=== PATIENT | female | born 1980 ===

== ENCOUNTER 2020-06-05 07:21 | Outpatient (REF) | payer BC, SELFPAY ==
[2020-06-05 08:20] LABS: MANUAL DIFF FLAG NO
[2020-06-05 08:36] LABS: Basophils Absolute Auto 0.1 X10*3/uL (0.0-0.2); Basophils Percent Auto 0.7 % (0-2); Eosinophils Absolute Auto 0.3 X10*3/uL (0.0-0.4); Hematocrit 38.4 % (37-47); Hemoglobin 12.9 g/dl (12.0-16.0); Imm Gran Abs Auto 0.02 X10*3/uL (0.00-0.03); Imm Gran Pct Auto 0.2 % (0.0-0.4); Lymphocytes Percent Auto 32.1 % (20-40); Mean Corpuscular HGB Conc 33.6 g/dl (31.0-35.0); Mean Corpuscular Hemoglobin 28.9 pg (27.0-33.0); Mean Corpuscular Volume 86.1 fL (80-98); Mean Platelet Volume 9.9 fL (9.4-12.3); Monocytes Absolute Auto 0.6 X10*3/uL (0.1-1.2); Monocytes Percent Auto 6.8 % (2-11); Neutrophils Absolute Auto 5.4 X10*3/uL (2.0-8.3); Neutrophils Percent Auto 57.2 % (45-73); Platelet Count 371 X10*3/uL (160-400); Red Blood Count 4.46 X10*6/uL (4.20-5.50); Red Cell Distribution Width 13.3 % (11.0-16.0); White Blood Count 9.4 X10*3/uL (4.8-10.8)
[2020-06-05 08:55] LABS: Alanine Aminotransferase 15 U/L (0-31); Albumin Level 4.2 g/dL (3.5-5.0); Alkaline Phosphatase 64 U/L (39-117); Anion Gap 14 (12-20); Aspartate Amino Transferase 13 U/L (5-31); Bilirubin Total 0.5 mg/dL (0.0-1.0); Blood Urea Nitrogen 15 mg/dL (9-16); Calcium 9.7 mg/dL (8.4-10.2); Carbon Dioxide 25 mmol/L (22-29); Chloride 103 mmol/L (96-108); Cholesterol 192 mg/dL; Estimated Glomerular Filt Rate > 60; Glucose Random 92 mg/dL (60-115); HDL Cholesterol 40 mg/dL; LDL Cholesterol Calculated 128 mg/dl; Sodium 138 mmol/L (135-145); Total Protein 7.3 g/dL (6.5-8.0); Triglycerides 124 mg/dL
[2020-06-05 09:18] LABS: Free T4 (Free Thyroxine) 0.85 ng/dL (0.71-1.85); Thyroid Stimulating Hormone 2.54 uIU/mL (0.32-4.0); Vitamin D 25-OH Total 21.6 ng/mL (>30)
[2020-06-07 05:08] LABS: Folate 10.7 ng/mL (> or = 4.0); Vitamin B12 309 pg/mL (200-900)
== END 2020-06-05 07:22 | disposition home or self-care (01) ==
LOC: HO.LAB 07:21
PROVIDERS: Visit Provider Internal Medicine
DX: I10 Essential (primary) hypertension (principal); E78.00 Pure hypercholesterolemia, unspecified
CPT/HCPCS: 36415; 80053; 80061; 82306; 82607; 82746; 84439; 84443; 85025

== ENCOUNTER 2021-03-15 15:18 | Outpatient (REF) | payer BC, MEDICAID, SELFPAY ==
--- NOTE | ~2021-03-15 | MM_ITS ---
EXAMINATION: MM SCREENING DIGITAL BREAST TOMOSYNTHESIS, BILATERAL CLINICAL INFORMATION: Screening. Asymptomatic. The lifetime risk of breast cancer based on the Tyrer-Cuzick Model is 19%. COMPARISON: Mammography: 10/03/2019, 09/24/2019 (baseline); left breast ultrasound 10/03/2019. TECHNIQUE: Digital breast tomosynthesis is performed in both the craniocaudal and mediolateral oblique views along with computer-aided detection (CAD). Synthesized 2D images are generated from the tomosynthesis. FINDINGS: There are scattered areas of fibroglandular density (ACR BI-RADS breast composition Category b). There are no significant masses, abnormal calcifications, or other abnormalities. Nodularity anterior 12:00 left breast consistent with cysts is stable. No developing density or significant changes from prior exams. MM/MM tomosynthesis screening BI IMPRESSION: No mammographic evidence of malignancy. ASSESSMENT: BI-RADS 2: Benign RECOMMENDATION: Routine annual mammography screening. This patient's information was entered into a reminder system with a target due date for their next mammogram.
== END 2021-03-15 15:19 | disposition home or self-care (01) ==
LOC: HO.MAMMO 15:18
PROVIDERS: Visit Provider Internal Medicine
DX: Z12.31 Encounter for screening mammogram for malignant neoplasm of breast (principal)
CPT/HCPCS: 77063; 77067

== ENCOUNTER 2021-03-22 10:06 | Outpatient (REF) | payer BC, MEDICAID, SELFPAY ==
[2021-03-22 14:45] LABS: CT PCR NOT DETECTED (Not Detect.); NG PCR NOT DETECTED (Not Detect.)
[2021-03-23 09:36] LABS: BV Int Neg Control Negative (Negative); BV Int Pos Control Positive (Positive)
== END 2021-03-22 10:07 | disposition home or self-care (01) ==
LOC: HO.LAB 10:06
PROVIDERS: PCP Internal Medicine; Visit Provider Advanced Practice Midwife
DX: Z01.411 Encounter for gynecological examination (general) (routine) with abnormal findings (principal); R10.2 Pelvic and perineal pain; N94.6 Dysmenorrhea, unspecified; N92.0 Excessive and frequent menstruation with regular cycle; Z20.2 Contact with and (suspected) exposure to infections with a predominantly sexual mode of transmission
CPT/HCPCS: 81003; 81025; 87480; 87491; 87510; 87591; 87660

== ENCOUNTER 2021-04-13 13:17 | Outpatient (REF) | payer BC, MEDICAID, SELFPAY ==
--- NOTE | ~2021-04-13 | US_ITS ---
EXAMINATION: US PELVIS CLINICAL INFORMATION: Extensive and frequent menstruation COMPARISON: Previous pelvic ultrasound March 2015 TECHNIQUE: Ultrasound of the pelvis is performed using both transabdominal and transvaginal transducers along with Doppler. Transvaginal imaging is performed due to inadequate visualization transabdominally. FINDINGS: The uterus is anteverted and measures 9.6 x 5.1 x 6.1 cm in dimension. There were several small cysts seen adjacent to the endometrium, largest measuring 4 mm. There is heterogeneous hyperechoic tissue with echotexture similar to endometrial tissue seen adjacent to the endometrium in the myometrium. Appearance is questionable for adenomyosis. Endometrial thickness is normal and measures 0.9 cm. IUD on 2014 exam no longer seen. There are nabothian cysts in the cervix. The right ovary is not seen. The left ovary measures 2.3 x 2.1 x 2.3 cm. There is a 1.3 x 1.3 x 1.4 cm complex left ovarian cyst with thick echogenic wall and vascularity. This probably represents a physiologic corpus. There is no fluid in the pelvis. US/US pelvic and transvaginal IMPRESSION: Question adenomyosis of the uterus. Normal thickness endometrium. IUD no longer seen. Right ovary not seen. Small complex left ovarian cyst probably representing a physiologic cyst.
== END 2021-04-13 13:18 | disposition home or self-care (01) ==
LOC: HO.US 13:17
PROVIDERS: PCP Internal Medicine; Visit Provider Advanced Practice Midwife
DX: N92.0 Excessive and frequent menstruation with regular cycle (principal)
CPT/HCPCS: 76830; 76856

== ENCOUNTER 2021-04-27 13:10 | Outpatient (REF) | payer BC, MEDICAID, SELFPAY | END 2021-04-27 13:11 | disposition home or self-care (01) | LOC: HO.LAB 13:10 | PROVIDERS: PCP Internal Medicine; Visit Provider Advanced Practice Midwife | DX: N93.9 Abnormal uterine and vaginal bleeding, unspecified (principal); N92.0 Excessive and frequent menstruation with regular cycle; N83.299 Other ovarian cyst, unspecified side; Z71.2 Person consulting for explanation of examination or test findings | CPT/HCPCS: 58100; 88305 ==

== ENCOUNTER → 2021-06-08 09:06 | Outpatient (BNVA) | payer BC, MEDICAID, SELFPAY | PROVIDERS: PCP Internal Medicine; Visit Provider Advanced Practice Midwife | DX: Z30.430 Encounter for insertion of intrauterine contraceptive device (principal) | CPT/HCPCS: 58300; 81025; J7298 ==

== ENCOUNTER 2021-06-23 13:18 | Outpatient (REF) | payer BC, MEDICAID, SELFPAY ==
--- NOTE | ~2021-06-23 | US_ITS ---
EXAMINATION: US PELVIS CLINICAL INFORMATION: Ovarian cyst. COMPARISON: Previous pelvic ultrasound April 2021. TECHNIQUE: Ultrasound of the pelvis is performed using both transabdominal and transvaginal transducers along with Doppler. Transvaginal imaging is performed due to inadequate visualization transabdominally. FINDINGS: The uterus is anteverted and measures 8.8 x 4.5 x 5.3 cm in dimension. There is a new IUD in the uterus in satisfactory position. The endometrium does not appear thickened measuring 0.5 cm. Uterine echotexture is heterogeneous. There are multiple hyperechoic small areas in the uterus. The largest measures 7 x 6 x 7 mm in the upper right uterine body. There are numerous small cystic areas in the uterus. Appearance is questionable for adenomyosis. There are nabothian cysts in the cervix. The right ovary measures 2.5 x 1 x 1 cm and is normal-appearing. The left ovary measures 3.2 x 1.8 x 1.7 cm. There is a new slightly complex 2.2 x 1.4 x 1.9 cm left ovarian cyst with slightly thickened irregular wall probably representing a physiologic corpus luteum. There is no fluid in the pelvis. US/US pelvic and transvaginal IMPRESSION: New IUD in the uterus in satisfactory position. Heterogeneous uterine echotexture questionable for adenomyosis. New slightly complex 2.2 x 1.4 x 1.9 cm left ovarian cyst with slightly thickened irregular wall probably representing a physiologic corpus luteum.
== END 2021-06-23 13:19 | disposition home or self-care (01) ==
LOC: HO.US 13:18
PROVIDERS: Visit Provider Advanced Practice Midwife
DX: N83.292 Other ovarian cyst, left side (principal)
CPT/HCPCS: 76830; 76856

== ENCOUNTER → 2021-06-30 11:19 | Outpatient (BNVA) | payer BC, MEDICAID, SELFPAY | PROVIDERS: PCP Internal Medicine; Visit Provider Advanced Practice Midwife | DX: Z13.89 Encounter for screening for other disorder (principal) ==

== ENCOUNTER 2021-07-09 07:42 | Outpatient (REF) | payer BC, MEDICAID, SELFPAY ==
[2021-07-14 12:41] LABS: CA 125 New Method 21 U/mL (<35); CA-125 21 U/mL (<35)
== END 2021-07-09 07:43 | disposition home or self-care (01) ==
LOC: HO.LAB 07:42
PROVIDERS: PCP Internal Medicine; Visit Provider Advanced Practice Midwife
DX: N83.299 Other ovarian cyst, unspecified side (principal)
CPT/HCPCS: 36415; 86304

== ENCOUNTER → 2021-07-11 08:43 | Outpatient (BNVA) | payer BC, MEDICAID, SELFPAY | PROVIDERS: PCP Internal Medicine; Visit Provider Advanced Practice Midwife | DX: Z13.89 Encounter for screening for other disorder (principal) ==

== ENCOUNTER 2021-10-31 15:32 | Outpatient (REF) | payer BC, MEDICAID, SELFPAY ==
--- NOTE | ~2021-10-31 | US_ITS ---
EXAMINATION: US PELVIS CLINICAL INFORMATION: Other ovarian cyst COMPARISON: Ultrasound pelvis from 06/23/2021 TECHNIQUE: Ultrasound of the pelvis is performed using both transabdominal and transvaginal transducers along with Doppler. Transvaginal imaging is performed due to inadequate visualization transabdominally. FINDINGS: Uterus: The uterus is anteverted and measures 9.0 x 4.0 x 6.1 cm. Linear echogenic focus identified representing an IUD, and appropriate position. Redemonstration of myometrial cysts. The uterus is smooth in contour and has normal myometrial echogenicity. No visible fibroid. Adnexa: Both ovaries are visualized. There is normal color flow to the adnexa. There is no ovarian torsion. There is no pelvic ascites or fluid collection. Right ovary measures 4.2 x 2.0 x 2.3 cm, volume 12.8 mL. Simple appearing cyst in the right ovary measuring 3.8 x 1.7 x 2.3 cm. Left ovary measures 2.8 x 1.2 x 1.0 cm, volume 1.9 mL. US/US pelvic and transvaginal IMPRESSION: 1. IUD in appropriate position. 2. Redemonstration of myometrial cysts. 3. Simple appearing cyst in the right ovary measuring up to 3.8 cm.
== END 2021-10-31 15:33 | disposition home or self-care (01) ==
LOC: HO.US 15:32
PROVIDERS: Visit Provider Advanced Practice Midwife
DX: N83.299 Other ovarian cyst, unspecified side (principal)
CPT/HCPCS: 76830; 76856

== ENCOUNTER 2021-12-13 15:41 | Emergency (ER) | payer BC, MEDICAID, SELFPAY ==
--- NOTE | ~2021-12-13 | XR_ITS ---
EXAMINATION: XR CHEST CLINICAL INFORMATION: Chest pain COMPARISON: Previous chest x-ray March 2014 TECHNIQUE: Frontal view of the chest was obtained. FINDINGS: The cardiac and mediastinal contours are normal. The lungs are clear. There is no pleural effusion or pneumothorax. There is mild curvature of the lower thoracic spine to the right. Bony structures are otherwise unremarkable. XR/XR chest 1V IMPRESSION: No evidence for acute disease in the chest.
[2021-12-13 15:44] VITALS: BP 187/97; PULSE 85; RESP 18; O2SAT 100; BMI 35.6
--- NOTE | 2021-12-13 15:48 | ECG_ITS ---
Test Reason : chest pain Blood Pressure : / mmHG Vent. Rate : 075 BPM Atrial Rate : 075 BPM P-R Int : 168 ms QRS Dur : 090 ms QT Int : 420 ms P-R-T Axes : 028 017 041 degrees QTc Int : 469 ms Normal sinus rhythm Normal ECG When compared with ECG of 17-NOV-2013 17:25, No significant change was found Referred By: Generic ED Physician Electronically Signed By:ORLANDO MALAVE
[2021-12-13 15:58] LABS: MANUAL DIFF FLAG NO
[2021-12-13 16:01] LABS: Basophils Percent Auto 0.3 % (0-2); Eosinophils Absolute Auto 0.2 X10*3/uL (0.0-0.4); Eosinophils Percent Auto 1.6 % (0-4); Hematocrit 41.7 % (37.0-47.0); Hemoglobin 14.2 g/dl (12.0-16.0); Imm Gran Abs Auto 0.05 X10*3/uL (0.00-0.03); Imm Gran Pct Auto 0.4 % (0.0-0.4); Lymphocytes Percent Auto 22.6 % (20-40); Mean Corpuscular HGB Conc 34.1 g/dl (31.0-35.0); Mean Corpuscular Hemoglobin 29.5 pg (27.0-33.0); Mean Corpuscular Volume 86.7 fL (80.0-98.0); Mean Platelet Volume 9.1 fL (9.4-12.3); Monocytes Absolute Auto 0.7 X10*3/uL (0.1-1.2); Monocytes Percent Auto 5.2 % (2-11); Neutrophils Absolute Auto 9.3 x10*3/uL (2.0-8.3); Neutrophils Percent Auto 69.9 % (45-73); Platelet Count 384 X10*3/uL (160-400); Red Blood Count 4.81 X10*6/uL (4.20-5.50); White Blood Count 13.3 X10*3/uL (4.8-10.8)
[2021-12-13 16:23] LABS: Anion Gap 16 (12-20); Blood Urea Nitrogen 14 mg/dL (9-16); Calcium 9.8 mg/dL (8.4-10.2); Carbon Dioxide 26 mmol/L (22-29); Chloride 100 mmol/L (96-108); Estimated Glomerular Filt Rate > 60; Glucose Random 92 mg/dL (60-115); Potassium 3.5 mmol/L (3.3-5.1); Sodium 138 mmol/L (135-145)
[2021-12-13 16:29] LABS: Troponin-I High Sensitivity < 3.5 ng/L (<3.5-17.0)
== END 2021-12-14 00:13 | disposition left against medical advice (07) ==
PROVIDERS: Emergency Provider Emergency Medicine; PCP Internal Medicine
DX: R07.9 Chest pain, unspecified (principal); I10 Essential (primary) hypertension; E78.00 Pure hypercholesterolemia, unspecified; K21.9 Gastro-esophageal reflux disease without esophagitis; E66.9 Obesity, unspecified; Z68.35 Body mass index [BMI] 35.0-35.9, adult
CPT/HCPCS: 36415; 71045; 80048; 84484; 85025; 93005; 99283

== ENCOUNTER 2022-03-20 15:31 | Outpatient (REF) | payer BC, MEDICAID, SELFPAY ==
--- NOTE | ~2022-03-20 | MM_ITS ---
EXAMINATION: MM SCREENING DIGITAL BREAST TOMOSYNTHESIS, BILATERAL CLINICAL INFORMATION: Screening. Asymptomatic. The lifetime risk of breast cancer based on the Tyrer-Cuzick Model is 15%. COMPARISON: Mammography: 03/15/2021, 10/03/2019, 09/24/2019 (baseline); ultrasound left breast 10/03/2019 TECHNIQUE: Digital breast tomosynthesis is performed in both the craniocaudal and mediolateral oblique views along with computer-aided detection (CAD). Synthesized 2D images are generated from the tomosynthesis. FINDINGS: There are scattered areas of fibroglandular density (ACR BI-RADS breast composition Category b). There are no significant masses, abnormal calcifications, or other abnormalities. Parenchymal pattern is similar to prior studies. There is no developing density or architectural abnormality. The axilla and skin contours are unremarkable. No significant changes. MM/MM tomosynthesis screening BI IMPRESSION: No mammographic evidence of malignancy. ASSESSMENT: BI-RADS 1: Negative RECOMMENDATION: Routine annual mammography screening. This patient's information was entered into a reminder system with a target due date for their next mammogram.
== END 2022-03-20 15:32 | disposition home or self-care (01) ==
LOC: HO.MAMMO 15:31
PROVIDERS: PCP Internal Medicine; Visit Provider Internal Medicine
DX: Z12.31 Encounter for screening mammogram for malignant neoplasm of breast (principal)
CPT/HCPCS: 77063; 77067

== ENCOUNTER 2022-03-23 12:58 | Outpatient (REF) | payer BC, MEDICAID, SELFPAY ==
[2022-03-24 12:37] LABS: BV Int Neg Control Negative (Negative); BV Int Pos Control Positive (Positive)
== END 2022-03-23 12:59 | disposition home or self-care (01) ==
LOC: HO.LNP 12:58
PROVIDERS: PCP Internal Medicine; Visit Provider Advanced Practice Midwife
DX: L29.2 Pruritus vulvae (principal)
CPT/HCPCS: 87480; 87510; 87660

== ENCOUNTER → 2022-07-04 13:55 | Outpatient (BNVA) | payer BC, MEDICAID, SELFPAY | PROVIDERS: PCP Internal Medicine; Visit Provider Dietitian, Registered | DX: E66.9 Obesity, unspecified (principal); Z71.3 Dietary counseling and surveillance | CPT/HCPCS: 97802 ==

== ENCOUNTER 2022-11-27 09:48 | Outpatient (AMB) | payer BC, MEDICAID, SELFPAY ==
--- NOTE | 2022-11-27 09:53 | A.OFFPC_ITS ---
Vital Signs 11/27/22 09:54 Height 5 ft 2 in Weight 196 lb 4 oz BMI 35.9 BP 140/90 H Blood Pressure Location Lt brachial Position Sitting Pulse 75 Pulse Source Pulse Oximeter Pulse Oximetry (%) 99 Oxygen Delivery Method Room Air Intake Visit Reasons: Gastroesophageal reflux disease (GERD) Intake Note: Pt is here for GERD. Pt requesting two referrals: Dermatology and GI. 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 Accompanied by: Self / Same As Patient Allergies No Known Allergies Allergy (Verified 11/27/22 10:06) pt states no food/medication a Adverse Reaction (Mild, Uncoded 11/27/22 10:06) no reactions Medication List - Last Reconciled 11/27/22 by TASH Neri amlodipine 5 mg PO DAILY famotidine (Pepcid) 20 mg PO DAILY levonorgestrel (Mirena) intrauterine lisinopril-hydrochlorothiazide 10-12.5 mg 1 tab PO DAILY 30 days loratadine (Claritin) 10 mg PO DAILY Tobacco use date assessed: 11/27/22 Dental Screening Dental Screen Date: 11/27/22 Did you have a dental visit in the last 12 months?: No Did you have a dental problem in the last 6 months where you did not have access to dental care?: No Was dental information given to patient?: Yes HPI HPI Comments History of Present Illness Details 42-year-old obese female with a history of hypertension, GERD, hypercholesterolemia. Patient of Dr. Shukla last seen last in January. Patient presents today for daily epigastric pain and burning related to history of GERD. Patient currently taking famotidine b.i.d. as well as [id number] Mylanta with no improvement. Patient reports was previously on Prilosec that did not improve her symptoms. Denies nausea and vomiting. Does report soft stools 3x daily denies any blood in the stool or abdominal cramping. Discussed ordering stool studies with patient however she declines at this time. Requesting referral to Gastroenterology. Referral entered. Patient also requesting referral to dermatology, referral entered. Fasting labs ordered. 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 1. Little interest or pleasure in doing things: not at all 2. Feeling down, depressed, or hopeless: not at all 3. Trouble falling or staying asleep, or sleeping too much: not at all 4. Feeling tired or having little energy: not at all 5. Poor appetite or overeating: not at all 6. Feeling bad about yourself - or that you are a failure or have let yourself or your family down: not at all 7. Trouble concentrating on things, such as reading the newspaper or watching television: not at all 8. Moving or speaking so slowly that other people could have noticed. Or the opposite - being so fidgety or restless that you have been moving around a lot more than usual: not at all 9. Thoughts that you would be better off or of hurting yourself in some way: not at all Total score: 0 Depression Screening Interpretation: Negative 77835 - PHQ-9 Billing: Yes Source: Developed by Drs. Maximo Jacob, Viviane Gonzáles, Rakesh Mcallister and colleagues, with an educational andrea from [employer]. Thrive Questionnaire Date Thrive assessed: 11/27/22 I am a: Patient What is your living situation today?: I have a steady place to live Within the past 12 months, did the food you bought not last and you didn't have the money to get more?: Never true Within the past 12 months, did you worry whether your food would run out before you got money to buy more?: Never true Do you have trouble paying for medicines?: No Do you have trouble getting transportation to medical appointments?: No Do you have trouble paying your heating and electricity bill?: No Do you have trouble taking care of your child, family member or friend?: No Do you have trouble with day-to-day activities such as bathing, preparing meals, shopping, managing finances, etc.?: No Are you currently unemployed and looking for a job?: No Are you interested in more education?: No Please select the resources that you would like help with: None Currently or been in a relationship where the following occur: no concerns reported AUDIT C Alcohol Use Questionnaire (AUDIT-C) 1. How often do you have a drink containing alcohol?: Never 3. How often do you have six or more drinks on one occasion?: Never Total Score: 0 DARCIE-7 AMB Questionnaire DARCIE-7 Date DARCIE - 7 assessed: 11/27/22 Feeling nervous, anxious, or on edge: 0 = Not at all Not being able to stop or control worryin = Not at all Worrying too much about different things: 0 = Not at all Trouble relaxin = Not at all Being so restless that it is hard to sit still: 0 = Not at all Becoming easily annoyed or irritable: 0 = Not at all Feeling afraid as if something awful might happen: 0 = Not at all Total DARCIE-7 score (0-4 normal; 5-9 mild; 10-14 moderate; 15-21 severe): 0 Source: Developed by Drs. Maximo Jacob, Viviane Gonzáles, Rakesh Mcallister and colleagues, with an educational andrea from [employer]. DARCIE-7 Assessment Billing DARCIE-7 Assessment Tool: DARCIE-7 Assessment 90480 Review of Systems Const Denies chills, Denies fatigue, Denies fever(s) and Denies poor appetite Eyes Denies no additional complaints ENT Reports Normal hearing present Card Denies chest pain, Denies syncope, Denies rapid heart rate and Denies dyspnea Resp Denies cough and Denies dyspnea GI Denies change in stool character, Denies constipation, Reports heartburn, Denies diarrhea, Reports loose stools, Denies nausea and Denies vomiting Denies urinary frequency, Denies dysuria and Denies urinary urgency Neuro Reports Normal hearing present, Denies confusion and Denies syncope Psych Denies confusion Endo Denies fatigue Physical exam (Primary Care) Vital Signs: Last Vital Signs Pulse 75 11/27/22 09:54 BP 140/90 H 11/27/22 09:54 Pulse Ox 99 11/27/22 09:54 Oxygen Delivery Method Room Air 11/27/22 09:54 BMI result Body Mass Index 35.9 Tobacco/Smoking Status: Tobacco use Status Tobacco use date assessed 11/27/22 11/27/22 10:00 Patient Tobacco Use Status Never used Tobacco 11/27/22 10:00 e-Cigarette/Vaping Use Never Used 11/27/22 10:00 PHQ-9: PHQ-9 Score PHQ-9: Total score 0 11/27/22 10:08 Depression Screening Interpretation: Negative Thrive Assessment: Date of Thrive Assessment Date Thrive assessed 11/27/22 11/27/22 10:00 Currently or been in a relationship where the following occur: no concerns reported Const General: No confusion Orientation/consciousness: No confusion HENMT Head: Yes normocephalic and Yes atraumatic Eyes Conjunctivae: conjunctivae normal Chest Chest palpation & inspection: normal inspection of the chest Resp Effort & Inspection: normal respiratory effort Auscultation: clear to auscultation bilaterally, no crackles, no rhonchi and no wheezes Cardio Rate: regular rate Rhythm: regular rhythm Heart sounds: S1 normal heart sound present and S2 normal heart sound present GI Inspection: Yes normal to inspection Palpation (GI): Soft to palpation, nontender and No hepatosplenomegaly present Auscultation: normoactive bowel sounds Neuro General: No confusion Cranial nerves: Yes Normal hearing present Extrem General: No edema Assessment and Plan Assessment & Plan (1) GERD (gastroesophageal reflux disease): Code(s): K21.9 - Gastro-esophageal reflux disease without esophagitis Qualifiers: Esophagitis presence: without esophagitis Qualified Code(s): K21.9 - Gastro-esophageal reflux disease without esophagitis Plan: Continue on famotidine b.i.d. Referral entered to gastroenterology. Avoid the foods that cause that, usually spicy foods, tomato products, juices, coffee, soda and foods that you're sensitive to.? After eating do not lie down, allow 3-4 hours before lying down. And keep the head of the bed above 30 degrees to avoid the acid from going up. (2) Hypertension: Code(s): I10 - Essential (primary) hypertension Qualifiers: Hypertension type: essential hypertension Qualified Code(s): I10 - Essential (primary) hypertension Plan: Continue current medications. Blood pressure goal less than 140/90. Follow low-salt diet and exercise. (3) Hypercholesterolemia: Code(s): E78.00 - Pure hypercholesterolemia, unspecified Plan: Fasting lipid panel ordered. Plan Keep scheduled physical exam with PCP in March. Orders: Orders Comprehensive [place]. Panel Fast Today Z13.1 - Encounter for screening for diabetes mellitus Lipid Panel Today Z13.220 - Encounter for screening for lipoid disorders TSH reflex Free T4 Today Z13.29 - Encounter for screening for other suspected endocrine disorder Complete Blood Count Auto Diff Today Z13.0 - Encounter for screening for diseases of the blood and blood-forming organs and certain disorders involving the immune mechanism Referrals Dermatology Referral L72.0 - Epidermal cyst Gastroenterology Referral K21.9 - Gastro-esophageal reflux disease without esophagitis Medications: Refilled lisinopril-hydrochlorothiazide 10-12.5 mg 1 tab PO DAILY 30 tabs 2RF 30 days I10 - Essential (primary) hypertension Coding Level of Care Code Est Pt Level 3 (83635) Diagnoses GERD (gastroesophageal reflux disease) K21.9 Esophagitis presence: without esophagitis Hypertension I10 Hypertension type: essential hypertension Hypercholesterolemia E78.00 Additional Codes DARCIE-7 Assessment Billing - DARCIE-7 Assessment Tool: DARCIE-7 Assessment 02314 ([id number])
[2022-11-27 09:54] VITALS: BP 140/90; PULSE 75; O2SAT 99; BMI 35.9
== END 2022-11-27 10:47 | disposition home or self-care (01) ==
PROVIDERS: PCP Internal Medicine; Visit Provider Nurse Practitioner Family
DX: K21.9 Gastro-esophageal reflux disease without esophagitis (principal); I10 Essential (primary) hypertension; E78.00 Pure hypercholesterolemia, unspecified
CPT/HCPCS: 99213

== ENCOUNTER 2023-01-20 08:08 | Outpatient (REF) | payer BC, MEDICAID, SELFPAY ==
[2023-01-20 08:41] LABS: MANUAL DIFF FLAG NO
[2023-01-20 08:53] LABS: Basophils Absolute Auto 0.1 X10*3/uL (0.0-0.2); Basophils Percent Auto 0.8 % (0-2); Eosinophils Absolute Auto 0.3 X10*3/uL (0.0-0.4); Eosinophils Percent Auto 2.9 % (0-4); Hematocrit 40.8 % (37.0-47.0); Hemoglobin 13.8 g/dl (12.0-16.0); Imm Gran Abs Auto 0.04 X10*3/uL (0.00-0.03); Imm Gran Pct Auto 0.3 % (0.0-0.4); Lymphocytes Absolute Auto 3.2 X10*3/uL (1.2-4.9); Lymphocytes Percent Auto 27.3 % (20-40); Mean Corpuscular HGB Conc 33.8 g/dl (31.0-35.0); Mean Corpuscular Hemoglobin 29.2 pg (27.0-33.0); Mean Corpuscular Volume 86.4 fL (80.0-98.0); Mean Platelet Volume 9.3 fL (9.4-12.3); Monocytes Absolute Auto 0.7 X10*3/uL (0.1-1.2); Neutrophils Absolute Auto 7.3 x10*3/uL (2.0-8.3); Neutrophils Percent Auto 62.7 % (45-73); Platelet Count 368 X10*3/uL (160-400); Red Blood Count 4.72 X10*6/uL (4.20-5.50); White Blood Count 11.6 X10*3/uL (4.8-10.8)
[2023-01-20 09:34] LABS: Alanine Aminotransferase 18 U/L (0-31); Albumin Level 4.1 g/dL (3.5-5.0); Alkaline Phosphatase 63 U/L (39-117); Anion Gap 12 (12-20); Aspartate Amino Transferase 14 U/L (5-31); Bilirubin Total 0.6 mg/dL (0.0-1.0); Blood Urea Nitrogen 9 mg/dL (9-16); Calcium 9.3 mg/dL (8.4-10.2); Carbon Dioxide 23 mmol/L (22-29); Chloride 106 mmol/L (96-108); Cholesterol 190 mg/dL (<200); Estimated Glomerular Filt Rate > 60; Glucose Fasting 90 mg/dL (60-99); HDL Cholesterol 42 mg/dL (>40); LDL Cholesterol Calculated 127 mg/dL (<100); Potassium 3.4 mmol/L (3.3-5.1); Sodium 138 mmol/L (135-145); Total Protein 7.3 g/dL (6.5-8.0); Triglycerides 105 mg/dL (<150)
[2023-01-20 09:42] LABS: TSH reflex Free T4 2.19 uIU/mL (0.32-4.0)
== END 2023-01-20 08:09 | disposition home or self-care (01) ==
LOC: HO.LAB 08:08
PROVIDERS: PCP Internal Medicine; Visit Provider Nurse Practitioner Family
DX: Z13.1 Encounter for screening for diabetes mellitus (principal); Z13.29 Encounter for screening for other suspected endocrine disorder; Z13.0 Encounter for screening for diseases of the blood and blood-forming organs and certain disorders involving the immune mechanism; Z13.220 Encounter for screening for lipoid disorders; Z20.2 Contact with and (suspected) exposure to infections with a predominantly sexual mode of transmission; E78.00 Pure hypercholesterolemia, unspecified
CPT/HCPCS: 36415; 80053; 80061; 84443; 85025

== ENCOUNTER 2023-01-22 13:26 | Outpatient (REF) | payer BC, MEDICAID, SELFPAY ==
[2023-01-22 17:24] LABS: CT PCR NOT DETECTED (Not Detect.); NG PCR NOT DETECTED (Not Detect.)
[2023-01-23 10:39] LABS: BV Int Neg Control Negative (Negative); BV Int Pos Control Positive (Positive)
== END 2023-01-22 13:27 | disposition home or self-care (01) ==
LOC: HO.LNP 13:26
PROVIDERS: PCP Internal Medicine; Visit Provider Advanced Practice Midwife
DX: Z97.5 Presence of (intrauterine) contraceptive device (principal); Z87.42 Personal history of other diseases of the female genital tract; Z20.2 Contact with and (suspected) exposure to infections with a predominantly sexual mode of transmission; R10.2 Pelvic and perineal pain
CPT/HCPCS: 0353U; 81003; 87480; 87510; 87660

== ENCOUNTER 2023-01-22 13:26 | Outpatient (AMB) | payer BC, MEDICAID, SELFPAY ==
--- NOTE | 2023-01-22 13:27 | MHC.OFFVIS ---
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: Public Transit Bus Driver Present (Angelina) Allergies No Known Allergies Allergy (Verified 01/22/23 13:41) pt states no food/medication a Adverse Reaction (Mild, Uncoded 11/27/22 10:06) no reactions Medication List - Last Reconciled 01/22/23 by Nikki Perkins CNM amlodipine 5 mg PO DAILY famotidine (Pepcid) 20 mg PO DAILY levonorgestrel (Mirena) intrauterine lisinopril-hydrochlorothiazide 10-12.5 mg 1 tab PO DAILY 30 days loratadine (Claritin) 10 mg PO DAILY Is last menstrual period known: Yes Last menstrual period: 01/08/23 HPI left side pelvic pain HPI Details Patient is here to evaluate left-sided pain she has a history of having ovarian cysts and has decided that if sort of feels like that. She was having trouble figuring out if it was related to some acid reflux pain that she was also having and that she will be seeing a carpet floor layer apprentice for. She is on a medication that is not really helping that very much. She has a Mirena for about a year and she had a put in both for control and the deal with the heavy painful crampy periods it has improved the periods but they still come every month. It does not always discouraged her from having sex but it has diminished her activity. She is not worried about STIs but is open to testing during the exam. 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 Cervix is multiparous Mirena strings clearly visible. Uterus is midposition to anteverted mobile nontender right side adnexa nontender left side adnexa nontender though patient did squint during exam good tone with Kegel. Either side feels enlarged though exam limited by adipose. External Female Exam: normal external appearance Speculum Exam - Vagina: normal appearance of the vagina and normal vaginal discharge Speculum Exam - Cervix: normal appearance of the cervix Bimanual exam- vagina & uterus: normal bimanual exam, uterine size normal, consistency normal, uterine mobility normal, uterine shape normal and non-tender Bimanual Exam- Adnexa, other: normal adnexae, no masses and No adnexal tenderness Results AMB Urinalysis, Automated UA Leukoctes 2 Boaz/uL Last Edit by APRIL Tovar on 01/22/23 13:45 UA Nitrite Negative Last Edit by APRIL Tovar on 01/22/23 13:45 UA Urobilinogen 0 mg/dL Last Edit by APRIL Tovar on 01/22/23 13:45 UA Protein 1 mg/dL Last Edit by APRIL Tovar on 01/22/23 13:45 UA pH 6.0 Last Edit by APRIL Tovar on 01/22/23 13:45 UA Blood 2 Joshua/uL Last Edit by APRIL Tovar on 01/22/23 13:45 UA Specific [place] 1.015 Last Edit by APRIL Tovar on 01/22/23 13:45 UA Ketone Positive Last Edit by Tracey Resendez Francis on 01/22/23 13:45 0.5 Tracey Resendez 01/22/23 13:45 UA Bilirubin 0 mg/dL Last Edit by Tracey Resendez A on 01/22/23 13:45 UA Glucose 0 mg/dL Last Edit by Tracey Resendez [facility] on 01/22/23 13:45 Results Reviewed Results Reviewed: Laboratory Last Values Urine pH (Auto) 6.0 01/22/23 13:43 Specific [place] (Auto) 1.015 01/22/23 13:43 Urine Protein (Auto) 1 mg/dL 01/22/23 13:43 Glucose (UA)(Auto) 0 mg/dL 01/22/23 13:43 Urine Ketones (Auto) Positive 01/22/23 13:43 Urine Blood (Auto) 2 Joshua/uL 01/22/23 13:43 Urine Nitrite (Auto) Negative 01/22/23 13:43 Urine Bilirubin (Auto) 0 mg/dL 01/22/23 13:43 Urine Urobilinogen (Auto) 0 mg/dL 01/22/23 13:43 Leukocyte Esterase (Auto) 2 Boaz/uL 01/22/23 13:43 Assessment & Plan Assessment & Plan (1) Presence of 52 mg levonorgestrel-releasing intrauterine device (IUD): Code(s): Z97.5 - Presence of (intrauterine) contraceptive device (2) Hx of ovarian cyst: Code(s): Z87.42 - Personal history of other diseases of the female genital tract Plan Discussed that 1st step of the evaluation will be a pelvic ultrasound to see if there has been a return of any ovarian cysts on that side. We will have a visit afterwards to review it based on what the radiology evaluation is of the cyst if it is there we will follow up from there if further follow-up is necessary I may refer her to Dr. Anderson. Also discussed comfort measures she sometimes takes Tylenol but also discussed heating pad or hot water bottle. Orders: Orders AMB Urinalysis Automated Today R10.2 - Pelvic and perineal pain CT NG by PCR Today R10.2 - Pelvic and perineal pain, Z20.2 - Contact with and (suspected) exposure to infections with a predominantly sexual mode of transmission Bacterial Vaginosis Panel Today R10.2 - Pelvic and perineal pain, Z20.2 - Contact with and (suspected) exposure to infections with a predominantly sexual mode of transmission Coding Level of Care Code Est Pt Level 3 (18553) Diagnoses Presence of 52 mg levonorgestrel-releasing intrauterine device (IUD) Z97.5 Hx of ovarian cyst Z87.42
[2023-01-22 13:28] VITALS: BP 122/84; BMI 36.2
== END 2023-01-22 14:39 | disposition home or self-care (01) ==
PROVIDERS: PCP Internal Medicine; Visit Provider Advanced Practice Midwife
DX: Z97.5 Presence of (intrauterine) contraceptive device (principal); Z87.42 Personal history of other diseases of the female genital tract; R10.2 Pelvic and perineal pain
CPT/HCPCS: 99213

== ENCOUNTER 2023-01-22 14:38 | Outpatient (REF) | payer BC, MEDICAID, SELFPAY | END 2023-01-22 14:39 | disposition home or self-care (01) | LOC: HO.LAB 14:38 | PROVIDERS: Visit Provider Advanced Practice Midwife | DX: Z13.89 Encounter for screening for other disorder (principal) ==

== ENCOUNTER 2023-02-09 13:42 | Outpatient (REF) | payer BC, MEDICAID, SELFPAY ==
--- NOTE | ~2023-02-09 | US_ITS ---
EXAMINATION: US PELVIS CLINICAL INFORMATION: Personal history of other diseases of the female genital tract LMP: 4 days ago COMPARISON: Pelvic ultrasound 10/31/2021 TECHNIQUE: Ultrasound of the pelvis is performed using both transabdominal and transvaginal transducers along with Doppler. Transvaginal imaging is performed due to inadequate visualization transabdominally. FINDINGS: Uterus: The uterus is anteverted and measures 7.4 x 2.8 x 5.4 cm. Multiple myometrial cysts are again seen. Linear echogenic focus identified representing an IUD appears in appropriate position. This obscures the endometrial stripe. A small amount of free fluid is seen within the cervix. Adnexa: Both ovaries are normal in appearance. There is normal color flow to the adnexa. There is no ovarian torsion. There is no pelvic ascites or fluid collection. Right ovary measures 2.8 x 1.1 x 1.1 cm. Volume 1.8 mL. Left ovary measures 1.9 x 0.8 x 1.6 cm. Volume 1.3 mL. US/US pelvic and transvaginal IMPRESSION: 1. IUD appears in appropriate position. 2. Multiple myometrial cysts. 3. Normal ovaries.
== END 2023-02-09 13:43 | disposition home or self-care (01) ==
LOC: HO.US 13:42
PROVIDERS: PCP Internal Medicine; Visit Provider Advanced Practice Midwife
DX: Z97.5 Presence of (intrauterine) contraceptive device (principal); Z87.42 Personal history of other diseases of the female genital tract
CPT/HCPCS: 76830; 76856

== ENCOUNTER 2023-02-21 07:48 | Outpatient (REF) | payer BC, MEDICAID, SELFPAY ==
[2023-02-23 19:23] LABS: Transglutaminase Ab IgG <1.0 U/mL; Transglutaminase IgA <1.0 U/mL
[2023-03-01 15:56] LABS: H Pylori Breath Test Negative (Negative)
== END 2023-02-21 07:49 | disposition home or self-care (01) ==
LOC: HO.LAB 07:48
PROVIDERS: PCP Internal Medicine; Visit Provider Nurse Practitioner Family
DX: R10.9 Unspecified abdominal pain (principal); K21.9 Gastro-esophageal reflux disease without esophagitis
CPT/HCPCS: 36415; 83013; 86364

== ENCOUNTER 2023-02-21 07:48 | Outpatient (AMB) | payer BC, MEDICAID, SELFPAY ==
--- NOTE | 2023-02-21 07:55 | A.OFFVIS_ITS ---
Intake Vital Signs 02/21/23 07:57 Height 5 ft 2 in Weight 194 lb 0.108 oz BMI 35.5 BP 140/89 H Blood Pressure Location Lt brachial Position Sitting Pulse 65 Intake Visit Reasons: Gastroesophageal reflux disease (GERD) Intake Note: Tamar presents in the office as a new patient for GERD. CC: She is here today for acid reflux. She feels like her stomach is always in pain and she always it. Even when she does not eat anything she will have the acid reflux. No irregular bowel movement but she does get burning in the epigastric region. Allergies No Known Allergies Allergy (Verified 02/21/23 07:58) HPI Gastroesophageal reflux disease (GERD) HPI Details 43-year-old female with past medical his tory of PVD, dysmenorrhea, history of ovarian cyst, hypercholesteremia is here today for initial consultation. Patient reports that for the last few months she has been dealing with severe acid reflux. Patient reports that she feels worse in the morning when she wakes up. Patient reports severe dyspepsia without dysphagia or odynophagia. Patient reports that postprandially no matter what she eats she will have acid reflux and occasionally epigastric pain. Patient denies any nausea or vomiting. Tried taking Prilosec without any relief. Currently is taking famotidine twice a day. Last dose was taken yesterday morning. Patient was never tested for H pylori. Patient reports that her had H pylori 2 years ago and was treated. Patient reports that she has been moving her bowels daily. Denies any constipation feels like she empties her bowels completely. Reports postprandial abdominal bloating. Patient reports that she had crackers with peanut butter in the evening and had severe reflux 3 hours later. [facility] Medical History (Updated 02/21/23 @ 08:38 by Norma Gamez [facility]) History of miscarriage Allergic rhinitis Anosmia Obesity (BMI 30-39.9) Urge incontinence Hypercholesterolemia Vitamin D deficiency Hypertension GERD (gastroesophageal reflux disease) Complex ovarian cyst Surgical History H/O surgical amputation of finger Family History Mother Breast cancer, Onset Age: 60 Father FH: prostate cancer (Reviewed 02/21/23 @ 07:58 by GLENN Martin Housing: House Alcohol intake: former Patient Tobacco Use Status: Never used Tobacco e-Cigarette/Vaping Use: Never Used Second Hand Smoke Exposure: No service: No Current occupational status: employed 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 Cognitive needs: No Hearing needs: No Vision needs: No Female Reproductive History Menstrual Age of Menarche: 12 Review of Systems Const Denies weight gain and Denies weight loss ENT Reports no additional complaints, Denies dysphagia and Denies odynophagia Card Reports no additional complaints Resp Reports no additional complaints GI Reports abdominal pain (Epigastric), Denies belching, Denies melena, Reports bloating, Denies change in bowel habits, Denies dysphagia, Denies excessive flatus, Denies dyspepsia, Reports heartburn, Denies diarrhea, Denies loose stools, Denies nausea, Denies odynophagia and Denies vomiting Reports no additional complaints Musc Reports no additional complaints Neuro Reports no additional complaints Psych Reports no additional complaints Endo Reports no additional complaints Physical Exam Vital Signs: Last Vital Signs Pulse 65 02/21/23 07:57 BP 140/89 H 02/21/23 07:57 BMI result Body Mass Index 35.5 Const General: healthy appearing, no acute distress and well developed Nutritional Appearance: obese Orientation/consciousness: patient oriented x3 HEENT Head: Yes normal to inspection, Yes normocephalic and Yes atraumatic Face and sinus: Yes normal facial exam Mouth: Normal oral and palatal mucosa present Throat: Yes posterior oropharynx normal, Yes tonsils normal and Yes uvula midline Eyes General: appearance normal, both eyes and all related structures Neck Neck: Yes normal visual inspection, Yes full ROM and Yes trachea midline Thyroid: Thyroid normal Resp Effort & Inspection: normal respiratory effort, able to speak in complete sentences, no tracheal deviation and symmetric chest movement Auscultation: clear to auscultation bilaterally Cardio Rate: regular rate Heart sounds: S1 normal heart sound present and S2 normal heart sound present GI Inspection: Yes normal to inspection, No distended and Yes obesity Palpation (GI): Soft to palpation, not firm, nontender and No hepatosplenomegaly present Auscultation: normal bowel sounds General: Yes no CVA tenderness Back/Spine/Pelvis Back: no CVA tenderness Skin General skin exam: elasticity normal, turgor normal and dry skin Neuro General: patient oriented x3 Psych Appearance: grossly normal Mental Status: mental status grossly normal Affect: normal affect Assessment & Plan Assessment & Plan (1) GERD (gastroesophageal reflux disease): Code(s): K21.9 - Gastro-esophageal reflux disease without esophagitis Qualifiers: Esophagitis presence: without esophagitis Qualified Code(s): K21.9 - Gastro-esophageal reflux disease without esophagitis (2) Epigastric abdominal pain: Code(s): R10.13 - Epigastric pain (3) Dyspepsia: Code(s): R10.13 - Epigastric pain Plan Will start patient on pantoprazole daily. Patient will take sucralfate at bedtime. Discussed with patient avoiding dietary triggers and late night snacking. Staying upright for minimal 3 hours after meals discussed with patient. Patient reports occasional postprandial abdominal bloating with different food. Discussed low FODMAP diet. List of food recommended as well as list of food to avoid given to patient. Will rule out H pylori, celiac. Will treat empirically if positive for H pylori. Patient will be sent for upper en doscopy, I will see her after the procedure. Patient is agreeable to plan of care and verbalizes understanding of instructions. She was given the opportunity to ask questions and all questions answered. Thank you for allowing me to participate in her care Orders: Orders H Pylori Breath Test Today Transglutaminase Ab IgG Today R10.9 - Unspecified abdominal pain Transglutaminase IgA Today R10.9 - Unspecified abdominal pain Medications: New pantoprazole take one tablet half an hour before breakfast 40 mg PO DAILY 30 tabs 2RF K 21.9 - Gastro-esophageal reflux disease without esophagitis sucralfate 10 mL PO BEDTIME 400 mL 3RF K21.9 - Gastro-esophageal reflux disease without esophagitis Discontinued famotidine (Pepcid) Discontinued Reason: Doctor's Order 20 mg PO DAILY 90 tabs 2RF K21.9 - Gastro-esophageal reflux disease without esophagitis Coding Level of Care Code New Pt Level 3 (52159) Diagnoses Gastroesophageal reflux disease without esophagitis K21.9 Esophagitis presence: without esophagitis Epigastric abdominal pain R10.13 Dyspepsia R10.13 Time Spent (min) 40 Comment 30 minutes spent with patient and additional 10 minutes spent reviewing her records
[2023-02-21 07:57] VITALS: BP 140/89; PULSE 65; BMI 35.5
== END 2023-02-21 09:05 | disposition home or self-care (01) ==
PROVIDERS: PCP Internal Medicine; Visit Provider Nurse Practitioner Family
DX: K21.9 Gastro-esophageal reflux disease without esophagitis (principal); R10.13 Epigastric pain
CPT/HCPCS: 99203

== ENCOUNTER 2023-06-01 11:44 | Day surgery (SDC) | payer BC, SELFPAY ==
[2023-06-01 12:50] VITALS: BMI 27.2
[2023-06-01 13:13] VITALS: BP 160/96; PULSE 69; RESP 16; TEMP 36.9; O2SAT 100
[2023-06-01 13:14] LABS: UPreg QC Valid YES; Urine Pregnancy NEGATIVE (NEGATIVE)
--- NOTE | 2023-06-01 13:45 | P.CONAN_ITS ---
[facility] Active Problems Active Problems: All Active Problems (Updated 02/21/23 @ 08:38 by Norma Gamez, [facility]) Hx of ovarian cyst (Acute) Presence of 52 mg levonorgestrel-releasing intrauterine device (IUD) (Acute) Peripheral vascular disease (Acute) Chest pain (Acute) Encounter to discuss test results (Acute) Complex ovarian cyst (Acute) Heavy menstrual bleeding (Acute) Dysmenorrhea (Acute) Pelvic pain in female (Acute) Encounter for annual routine gynecological examination (Acute) UTI (urinary tract infection) (Acute) Flank pain (Acute) Annual physical exam (Acute) Obesity (BMI 30-39.9) (Acute) Hypercholesterolemia (Acute) Hypertension (Acute) GERD (gastroesophageal reflux disease) (Acute) Past Medical History Medical History History of miscarriage Allergic rhinitis Anosmia Obesity (BMI 30-39.9) Urge incontinence Hypercholesterolemia Vitamin D deficiency Hypertension GERD (gastroesophageal reflux disease) Complex ovarian cyst Family History Family History Mother Breast cancer, Onset Age: 60 Father FH: prostate cancer Family history of problems with anesthesia: No Surgical History Surgical History H/O surgical amputation of finger History of Problems with Anesthesia: No Social History Social History Housing: House Alcohol intake: former Patient Tobacco Use Status: Never used Tobacco e-Cigarette/Vaping Use: Never Used Second Hand Smoke Exposure: No Use of substances other than those prescribed or required for medical reasons: No Are you DNR?: No Advance Directives: No Advance Directives Information Provided: Yes service: No Current occupational status: employed 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 Cognitive needs: No Hearing needs: No Vision needs: No Meds Allergies Allergy/AdvReac Type Severity Reaction Status Date / Time No Known Allergies Allergy Verified 06/01/23 12:44 Exam Height,Weight and Vital Signs: Height 5 ft 2 in Weight 67.585 kg Last Vital Signs Temp 98.4 F 06/01/23 13:13 Pulse 69 06/01/23 13:13 Resp 16 06/01/23 13:13 BP 160/96 H 06/01/23 13:13 Pulse Ox 100 06/01/23 13:13 O2 Del Method Room Air 06/01/23 13:13 Pertinent Lab Results Pertinent Lab Results: Laboratory Tests 06/01/23 12:30 Urine Test NEGATIVE Airway Mallampati Class: II (missing one tooth) TM Dist: >3cm Neck ROM: Full Heart: rrr Lungs: cta Assessment and Plan Assessment Anesthesia Assessment: Anesthesia Plan Discussed and Chart Reviewed Final Anesthetic Review Family History of Problems with Anesthesia: No History of Problems with Anesthesia: No NPO: Yes ASA Class: II Final Preanesthetic Review: No Changes in Pt Med Stat, Meds/Allgs Chart Reviewed and Consent Obtained/Reviewed Patient Risk: Low Procedure Risk: Low Anesthetic Plan Anesthetic Plan: MAC: Disposition: Standard PACU
--- NOTE | 2023-06-01 13:53 | P.HPSUR_ITS ---
Pre-Procedural Eval Section A - 24 Hr Update-Section A only Date of Service: 06/01/23 The patient is an INPATIENT: No The patient has been examined within 24 hours of the surgical procedure. The History & Physical has been completed within 30 days and I have reviewed it.: No Section B - Complete if H&P > 30 days Chief Complaint: GERD, upper abdominal pain Relevant Family History (Specify if Yes): No Relevant Social History: None Present Medications: see Short Stay Collaborative assessment Medical History: Significant History (Allergic rhinitis Anosmia Obesity (BMI 30- 39.9) Urge incontinence Hypercholesterolemia Vitamin D deficiency Hypertension GERD (gastroesophageal reflux disease) Complex ovarian cyst) History of Previous Operations: Relevant previous surgery/procedure and date(s) (H/O surgical amputation of finger) Allergies: Allergies Allergy/AdvReac Type Severity Reaction Status Date / Time No Known Allergies Allergy Verified 06/01/23 12:44 Review of Systems Sugical H&P ROS: Negative: Constitution, Cardiovascular and Respiratory and Yes, Specify: Gastrointestinal (GERD, abdominal pain) Exam Surgical H&P Exam: Normal: Heart, Normal: Lungs, Normal: Extremities and Normal: Abdomen Plan Diagnosis/Plan: Unchanged I have reviewed the history and physical and performed a pertinent physical examination on my patient. No changes have occurred unless specified. Time Spent With Patient Time: Total time managing care of this patient today ____ minutes.
--- NOTE | 2023-06-01 15:00 | P.OP_ITS ---
Operative Note Operative Note Date of Service: 06/01/23 Narrative: FLEXIBLE TRANSORAL UPPER GASTROINTESTINAL ENDOSCOPY WITH BIOPSIES Pre-op diagnosis: GERD, postprandial bloating Post-op diagnosis: GERD, gastritis, John en Y gastric bypass status Endoscopist:? Neptali Pavon MD Anesthesia:?MAC Consent: Indications for the procedure and potential complications of bleeding, perforation, reaction to medications and missed diagnosis were discussed with the patient and informed consent was obtained. Instrument: Olympus GIF H 190 mid size upper endoscope Monitoring: Vital signs and clinical assessment, continuous EKG monitoring, Pulse oximetry, Carbon Dioxide monitoring and blood pressure monitoring were done throughout the procedure. Procedure: The patient was placed in the left lateral decubitis position and pre-procedure medications were administered and a bite block was placed. The endoscope was inserted into the mouth and advanced under direct vision to the third part of duodenum. A careful inspection was made as the upper endoscope was withdrawn including a retroflexed examination of the proximal stomach; Findings and interventions are described below. Findings: Larynx: Edema of the arytenoid cartilages Esophagus: GE junction at 40 cms. No esophagitis or Ng's Stomach: Gastro-jejunal anastomosis at 45 cms. Mild diffuse gastric erythema. Biopsies were obtained. Grade 2 flap valve on retroflexed examination of the cardia. Jejunum: Normal mucosa - biopsies were obtained to check for celiac sprue. Intervention: Biopsies as noted above Impression and Post Procedure Diagnosis: Endoscopy Findings: LARYNX: Changes suggestive of LPRD ESOPHAGUS: Normal STOMACH: Gastro-jejunal anastomosis at 45 cms. Mild diffuse gastric erythema. Biopsies were obtained. JEJUNUM: Normal - biopsies were obtained to check for celiac sprue. Plan: Await pathology results Patient has an appointment on 06/25/23 in the GI Clinic with Norma Gamez FNP- [facility]. Above findings were reviewed with the patient and GERD handout was given in the discharge area BIOPSIES SHOWED: A. Small bowel, biopsy: Duodenal mucosa within normal limits; negative for celiac disease. B. Stomach, antrum, biopsy: Antral-type and oxyntic mucosa with mild chronic inactive inflammation; no Helicobacter organisms seen
[2023-06-01 15:02] VITALS: BP 127/86; PULSE 91; RESP 16; TEMP 36.3; O2SAT 97
[2023-06-01 15:17] VITALS: BP 137/96; PULSE 80; RESP 16; TEMP 37; O2SAT 99
== END 2023-06-01 15:56 | disposition home or self-care (01) ==
PROVIDERS: Anesthesiology; PCP Internal Medicine; Visit Provider Internal Medicine Gastroenterology
PROC: 0DJ08ZZ Inspection of Upper Intestinal Tract, Via Natural or Artificial Opening Endoscopic (ICD-10-PCS; CPT 43235; principal; 2023-06-01 13:50)
DX: K29.60 Other gastritis without bleeding (principal); K21.9 Gastro-esophageal reflux disease without esophagitis; I10 Essential (primary) hypertension; E78.00 Pure hypercholesterolemia, unspecified; Z79.899 Other long term (current) drug therapy
CPT/HCPCS: 43239; 81025; 88305; 88313; 88342; J2704

== ENCOUNTER → 2023-06-01 11:44 | Outpatient (BNV) | payer BC, SELFPAY | PROVIDERS: PCP Internal Medicine; Visit Provider Internal Medicine Gastroenterology | DX: K29.70 Gastritis, unspecified, without bleeding (principal); K21.9 Gastro-esophageal reflux disease without esophagitis; K31.89 Other diseases of stomach and duodenum; Z98.84 Bariatric surgery status | CPT/HCPCS: 43239 ==

== ENCOUNTER 2023-06-25 10:06 | Outpatient (AMB) | payer BC, SELFPAY ==
--- NOTE | 2023-06-25 10:09 | MHC.OFFVIS ---
Intake Vital Signs 06/25/23 10:17 Height 5 ft 2 in Weight 196 lb 3.382 oz BMI 35.9 BP 153/85 H Blood Pressure Location Lt brachial Position Sitting Pulse 88 Pulse Source Pulse Oximeter Pulse Oximetry (%) 99 Oxygen Delivery Method Room Air Oxygen Flow Rate 99 Intake Visit Reasons: s/p egd Librado Intake Note: Pt here for follow up Endoscopy, pt reported have abdominal pain, diarrhea and reflux, no vomiting or nausea. Lugger Required: No Information Interpreted: non-clinical & clinical Accompanied by: Self / Same As Patient Allergies No Known Allergies Allergy (Verified 06/25/23 11:29) Medication List - Last Reconciled 06/25/23 by Norma Gamez, INFORMATION TECHNOLOGY AUDITOR- amlodipine 5 mg PO DAILY lisinopril-hydrochlorothiazide 10-12.5 mg 1 tab PO DAILY 30 days loratadine (Claritin) 10 mg PO DAILY pantoprazole 40 mg PO DAILY sucralfate 10 mL PO BEDTIME HPI s/p egd Librado HPI Details LAST VISIT GERD (gastroesophageal reflux disease) Epigastric abdominal pain Dyspepsia Plan Will start patient on pantoprazole daily. Patient will take sucralfate at bedtime. Discussed with patient avoiding dietary triggers and late night snacking. Staying upright for minimal 3 hours after meals discussed with patient. Patient reports occasional postprandial abdominal bloating with different food. Discussed low FODMAP diet. List of food recommended as well as list of food to avoid given to patient. Will rule out H pylori, celiac. Will treat empirically if positive for H pylori. Patient will be sent for upper endoscopy, I will see her after the procedure. Patient is agreeable to plan of care and verbalizes understanding of instructions. She was given the opportunity to ask questions and all questions answered. ? Thank you for allowing me to participate in her care Orders Orders H Pylori Breath Test Today Transglutaminase Ab IgG Today R10.9 Transglutaminase IgA Today R10.9 Medications New pantoprazole take one tablet half an hour before breakfast 40 mg PO DAILY 30 tabs 2RF K21.9 sucralfate 10 mL PO BEDTIME 400 mL 3RF K21.9 Discontinued famotidine (Pepcid) Discontinued Reason: Doctor's Order 20 mg PO DAILY 90 tabs 2RF K21.9 UPPER ENDOSCOPY Findings: Larynx: Edema of the arytenoid cartilages Esophagus: GE junction at 40 cms. No esophagitis or Ng's Stomach: Gastro-jejunal anastomosis at 45 cms. Mild diffuse gastric erythema. Biopsies were obtained. Grade 2 flap valve on retroflexed examination of the cardia. Jejunum: Normal mucosa - biopsies were obtained to check for celiac sprue. Intervention: Biopsies as noted above Impression and Post Procedure Diagnosis: Endoscopy Findings: LARYNX: Changes suggestive of LPRD ESOPHAGUS: Normal STOMACH: Gastro-jejunal anastomosis at 45 cms. Mild diffuse gastric erythema. Biopsies were obtained. JEJUNUM: Normal - biopsies were obtained to check for celiac sprue. Plan: Await pathology results Patient has an appointment on 06/25/23 in the GI Clinic with Norma Gamez FNP-BC. Above findings were reviewed with the patient and GERD handout was given in the discharge area BIOPSIES SHOWED: A. Small bowel, biopsy: Duodenal mucosa within normal limits; negative for celiac disease. B. Stomach, antrum, biopsy: Antral-type and oxyntic mucosa with mild chronic inactive inflammation; no Helicobacter organisms seen TODAY'S VISIT: Patient is here today for follow-up and to discuss upper endoscopy results. As mentioned above small-bowel biopsy showed no celiac disease. Mild inactive inflammation without H pylori. Patient states that she ran out of pantoprazole and sucralfate and her symptoms of acid reflux were getting stronger. She is reporting epigastric discomfort with dyspepsia without dysphagia or odynophagia. Patient states that she felt well when she was taking pantoprazole and sucralfate. Patient reports postprandial abdominal bloating. She will be due to go for colonoscopy after December. Patient denies any family history of colorectal cancer. Patient denies melena, hematochezia, unintentional weight loss or ribbon like stools. [facility] Medical History History of miscarriage Allergic rhinitis Anosmia Obesity (BMI 30-39.9) Urge incontinence Hypercholesterolemia Vitamin D deficiency Hypertension GERD (gastroesophageal reflux disease) Complex ovarian cyst Surgical History H/O surgical amputation of finger Family History (Updated 06/25/23 @ 10:16 by Janet eMjia MA) Mother Breast cancer, Onset Age: 60 Heart failure Pulmonary hypertension Father FH: prostate cancer Social History Housing: House Alcohol intake: former Patient Tobacco Use Status: Never used Tobacco e-Cigarette/Vaping Use: Never Used Second Hand Smoke Exposure: No service: No Current occupational status: employed 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 Cognitive needs: No Hearing needs: No Vision needs: No Female Reproductive History Menstrual Age of Menarche: 12 Review of Systems Const Denies weight gain and Denies weight loss ENT Reports no additional complaints, Denies dysphagia and Denies odynophagia Card Reports no additional complaints Resp Reports no additional complaints GI Denies abdominal pain, Denies belching, Denies melena, Denies bloating, Denies change in bowel habits, Denies dysphagia, Denies excessive flatus, Denies dyspepsia, Denies heartburn, Denies diarrhea, Denies loose stools, Denies nausea, Denies odynophagia and Denies vomiting Musc Reports no additional complaints Neuro Reports no additional complaints Psych Reports no additional complaints Endo Reports no additional complaints Physical Exam Vital Signs: Last Vital Signs Pulse 88 06/25/23 10:17 BP 153/85 H 06/25/23 10:17 Pulse Ox 99 06/25/23 10:17 Oxygen Delivery Method Room Air 06/25/23 10:17 Oxygen Flow Rate 99 06/25/23 10:17 BMI result Body Mass Index 35.9 Const General: healthy appearing, no acute distress and well developed Nutritional Appearance: obese Orientation/consciousness: patient oriented x3 Resp Effort & Inspection: normal respiratory effort, able to speak in complete sentences, no tracheal deviation and symmetric chest movement Auscultation: clear to auscultation bilaterally Cardio Rate: regular rate GI Inspection: Yes normal to inspection, No distended and Yes obesity Palpation (GI): Soft to palpation, not firm, nontender and No hepatosplenomegaly present Auscultation: normal bowel sounds General: Yes no CVA tenderness Back/Spine/Pelvis Back: no CVA tenderness Skin General skin exam: elasticity normal, turgor normal and dry skin Neuro General: patient oriented x3 Psych Appearance: grossly normal Mental Status: mental status grossly normal Affect: normal affect Assessment & Plan Assessment & Plan (1) GERD (gastroesophageal reflux disease): Code(s): K21.9 - Gastro-esophageal reflux disease without esophagitis Qualifiers: Esophagitis presence: without esophagitis Qualified Code(s): K21.9 - Gastro-esophageal reflux disease without esophagitis (2) Epigastric abdominal pain: Code(s): R10.13 - Epigastric pain (3) Dyspepsia: Code(s): R10.13 - Epigastric pain Plan Patient will continue taking pantoprazole and sucralfate. Continue avoiding dietary triggers and late night snacking. Staying upright for minimum 3 hours after meals discussed with patient. Discussed with patient low FODMAP diet. List of food recommended as well as list of food to avoid given to patient. Patient will return in 4 months we will discuss going for colonoscopy. Patient will be turning 44 in December. Denies any family history of colorectal cancer. No melena, hematochezia, unintentional weight loss or ribbon like stools. Medications: Refilled pantoprazole take one tablet half an hour before breakfast 40 mg PO DAILY 90 tabs 2RF K21.9 - Gastro-esophageal reflux disease without esophagitis sucralfate 10 mL PO BEDTIME 400 mL 3RF K21.9 - Gastro-esophageal reflux disease without esophagitis Coding Level of Care Code Est Pt Level 3 (56830) Diagnoses Gastroesophageal reflux disease without esophagitis K21.9 Esophagitis presence: without esophagitis Epigastric abdominal pain R10.13 Dyspepsia R10.13 Time Spent (min) 30 Comment 20 minutes spent with patient and additional 10 minutes spent reviewing her records
[2023-06-25 10:17] VITALS: BP 153/85; PULSE 88; O2SAT 99; BMI 35.9
== END 2023-06-25 10:31 | disposition home or self-care (01) ==
PROVIDERS: PCP Internal Medicine; Visit Provider Nurse Practitioner Family
DX: K21.9 Gastro-esophageal reflux disease without esophagitis (principal); R10.13 Epigastric pain
CPT/HCPCS: 99213

== ENCOUNTER → 2023-06-25 10:06 | Outpatient (BNVA) | payer BC, SELFPAY | PROVIDERS: PCP Internal Medicine; Visit Provider Nurse Practitioner Family ==

== ENCOUNTER 2023-06-25 11:22 | Outpatient (AMB) | payer BC, SELFPAY ==
[2023-06-25 11:29] VITALS: BP 148/92; PULSE 67; O2SAT 98; BMI 35.3
--- NOTE | 2023-06-25 11:29 | MHC.PC.OV ---
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 Last seen in October 2022. Review of the notes was recently seen by the Gastroenterology status post EGD 06/07/2023 had abdominal pain diarrhea and reflux no vomiting on Carafate and pantoprazole diagnosis of GERD gastritis John-en-Y gastric bypass biopsy results small-bowel duodenal normal stomach mild chronic inactive inflammation no H pylori seen. Patient had blood work done in December 2022 showing potassium of 3.4 normal creatinine normal cholesterol. mom from pulmonary hypertension patient complains of finger numbness all of it as well as the feet numbness states all of the fingers. Also has frequency but does drink a lot of water before sleeping. [facility] Medical History History of miscarriage Allergic rhinitis Anosmia Obesity (BMI 30-39.9) Urge incontinence Hypercholesterolemia Vitamin D deficiency Hypertension GERD (gastroesophageal reflux disease) Complex ovarian cyst Surgical History H/O surgical amputation of finger Family History (Updated 06/25/23 @ 10:16 by Janet Mejia MA) Mother Breast cancer, Onset Age: 60 Heart failure Pulmonary hypertension Father FH: prostate cancer Social History Housing: House Alcohol intake: former Patient Tobacco Use Status: Never used Tobacco e-Cigarette/Vaping Use: Never Used Second Hand Smoke Exposure: No service: No Current occupational status: employed 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 Cognitive needs: No Hearing needs: No Vision needs: No Female Reproductive History Menstrual Age of Menarche: 12 Questionnaire Thrive Questionnaire Date Thrive assessed: 06/25/23 I am a: Patient What is your living situation today?: I have a steady place to live Within the past 12 months, did the food you bought not last and you didn't have the money to get more?: Never true Within the past 12 months, did you worry whether your food would run out before you got money to buy more?: Never true Do you have trouble paying for medicines?: No Do you have trouble getting transportation to medical appointments?: No Do you have trouble paying your heating and electricity bill?: No Do you have trouble taking care of your child, family member or friend?: No Do you have trouble with day-to-day activities such as bathing, preparing meals, shopping, managing finances, etc.?: No Are you currently unemployed and looking for a job?: No Are you interested in more education?: No Please select the resources that you would like help with: None Currently or been in a relationship where the following occur: no concerns reported THRIVE Score: 0 AUDIT C Alcohol Use Questionnaire (AUDIT-C) 1. How often do you have a drink containing alcohol?: Never 3. How often do you have six or more drinks on one occasion?: Never Total Score: 0 DARCIE-7 AMB Questionnaire DARCIE-7 Date DARCIE - 7 assessed: 06/25/23 Source: Developed by Drs. Maximo Jacob, Viviane Gonzáles, Rakesh Mcallister and colleagues, with an educational andrea from [employer]. Physical exam (Primary Care) Vital Signs: Last Vital Signs Pulse 67 06/25/23 11:29 BP 148/92 H 06/25/23 11:29 Pulse Ox 98 06/25/23 11:29 Oxygen Delivery Method Room Air 06/25/23 11:29 BMI result Body Mass Index 35.3 Tobacco/Smoking Status: Tobacco use Status Tobacco use date assessed 06/25/23 06/25/23 11:30 Patient Tobacco Use Status Never used Tobacco 06/25/23 11:30 e-Cigarette/Vaping Use Never Used 06/25/23 11:30 Thrive Assessment: Date of Thrive Assessment Date Thrive assessed 06/25/23 06/25/23 11:30 Currently or been in a relationship where the following occur: no concerns reported Const General: alert; No acute distress Eyes Conjunctivae: conjunctivae normal Resp Auscultation: clear to auscultation bilaterally Cardio Rate: regular rate Rhythm: regular rhythm GI Inspection: Yes normal to inspection Extrem General: Yes normal to inspection and No edema Assessment and Plan Assessment & Plan (1) GERD (gastroesophageal reflux disease): Code(s): K21.9 - Gastro-esophageal reflux disease without esophagitis Qualifiers: Esophagitis presence: without esophagitis Qualified Code(s): K21.9 - Gastro-esophageal reflux disease without esophagitis Plan: Avoid the foods that causes that usually spicy foods, tomato products, juices, coffee, soda and foods that your sensitive to. After eating do not lie down, allow 3-4 hours before in lie down. And keep the head of bed above 30 degrees to avoid the acid from going up. Presently on pantoprazole and Carafate (2) Hypertension: Code(s): I10 - Essential (primary) hypertension Qualifiers: Hypertension type: essential hypertension Qualified Code(s): I10 - Essential (primary) hypertension Plan: Continue with blood pressure medication. Decrease salt intake and exercise patient takes lisinopril hydrochlorothiazide 10/12.5 once a day and amlodipine 5 mg once a day (3) Obesity (BMI 30-39.9): Code(s): E66.9 - Obesity, unspecified Plan: Diet and exercise (4) Hypercholesterolemia: Code(s): E78.00 - Pure hypercholesterolemia, unspecified Plan: Avoid fried foods, chicken skin, eggs, butter margarine, pastries and meat. Be it pork or beef they have a lot of cholesterol LDL goal of less than 130 and triglyceride of less than 150. (5) Situational anxiety: Code(s): F41.8 - Other specified anxiety disorders Plan: Patient is prescribed benzodiazepine to help. Declined any referral for counseling (6) Frequency of micturition: Code(s): R35.0 - Frequency of micturition Plan: Blood work requested (7) Peripheral neuropathy: Code(s): G62.9 - Polyneuropathy, unspecified Plan: Blood work requested radial pulses normal Orders: Orders Comprehensive Met. Panel Today R35.0 - Frequency of micturition Vitamin B12 and Folate Today G62.9 - Polyneuropathy, unspecified Complete Blood Count Auto Diff Today R35.0 - Frequency of micturition Hemoglobin A1c Today R35.0 - Frequency of micturition Thyroid Stimulating Hormone Today G62.9 - Polyneuropathy, unspecified Free T4 (Free Thyroxine) Today G62.9 - Polyneuropathy, unspecified Lipid Panel Today E78.00 - Pure hypercholesterolemia, unspecified, G62.9 - Polyneuropathy, unspecified UA CC w/rflx Micro + Cult Today G62.9 - Polyneuropathy, unspecified, R30.0 - Dysuria Medications: New alprazolam 0.25 mg PO TID PRN 25 tabs 0RF anxiety F41.8 - Other specified anxiety disorders Coding Level of Care Code Est Pt Level 4 (17130) Diagnoses Gastroesophageal reflux disease without esophagitis K21.9 Esophagitis presence: without esophagitis Essential hypertension I10 Hypertension type: essential hypertension Obesity (BMI 30-39.9) E66.9 Hypercholesterolemia E78.00 Situational anxiety F41.8 Frequency of micturition R35.0 Peripheral neuropathy G62.9
[2023-06-25 11:54] VITALS: BP 138/80
== END 2023-06-25 12:04 | disposition home or self-care (01) ==
PROVIDERS: PCP Internal Medicine; Visit Provider Internal Medicine
DX: K21.9 Gastro-esophageal reflux disease without esophagitis (principal); I10 Essential (primary) hypertension; Z68.35 Body mass index [BMI] 35.0-35.9, adult; E66.9 Obesity, unspecified; E78.00 Pure hypercholesterolemia, unspecified; F41.8 Other specified anxiety disorders; R35.0 Frequency of micturition; G62.9 Polyneuropathy, unspecified
CPT/HCPCS: 99214

== ENCOUNTER 2023-07-02 08:03 | Outpatient (REF) | payer BC, SELFPAY ==
[2023-07-02 08:14] LABS: MANUAL DIFF FLAG NO
[2023-07-02 08:44] LABS: Basophils Absolute Auto 0.1 X10*3/uL (0.0-0.2); Basophils Percent Auto 0.8 % (0-2); Eosinophils Absolute Auto 0.3 X10*3/uL (0.0-0.4); Eosinophils Percent Auto 3.9 % (0-4); Hematocrit 40.2 % (37.0-47.0); Hemoglobin 13.6 g/dl (12.0-16.0); Imm Gran Abs Auto 0.03 X10*3/uL (0.00-0.03); Imm Gran Pct Auto 0.4 % (0.0-0.4); Lymphocytes Absolute Auto 3.1 X10*3/uL (1.2-4.9); Lymphocytes Percent Auto 36.8 % (20-40); Mean Corpuscular HGB Conc 33.8 g/dl (31.0-35.0); Mean Corpuscular Hemoglobin 28.6 pg (27.0-33.0); Mean Corpuscular Volume 84.6 fL (80.0-98.0); Mean Platelet Volume 9.4 fL (9.4-12.3); Monocytes Absolute Auto 0.5 X10*3/uL (0.1-1.2); Neutrophils Absolute Auto 4.4 x10*3/uL (2.0-8.3); Neutrophils Percent Auto 52.1 % (45-73); Platelet Count 383 X10*3/uL (160-400); Red Blood Count 4.75 X10*6/uL (4.20-5.50); White Blood Count 8.4 X10*3/uL (4.8-10.8)
[2023-07-02 08:50] LABS: Estimated Average Glucose 108 mg/dL; Hemoglobin A1c % 5.4 % (<6.0)
[2023-07-02 09:22] LABS: Alanine Aminotransferase 23 U/L (0-31); Albumin Level 4.2 g/dL (3.5-5.0); Alkaline Phosphatase 70 U/L (39-117); Anion Gap 12 (12-20); Aspartate Amino Transferase 14 U/L (5-31); Bilirubin Total 0.5 mg/dL (0.0-1.0); Blood Urea Nitrogen 11 mg/dL (9-16); Calcium 9.4 mg/dL (8.4-10.2); Carbon Dioxide 26 mmol/L (22-29); Chloride 106 mmol/L (96-108); Cholesterol 219 mg/dL (<200); Estimated Glomerular Filt Rate > 60; Glucose Random 93 mg/dL (60-115); HDL Cholesterol 43 mg/dL (>40); LDL Cholesterol Calculated 154 mg/dL (<100); Potassium 3.4 mmol/L (3.3-5.1); Sodium 141 mmol/L (135-145); Total Protein 7.6 g/dL (6.5-8.0); Triglycerides 110 mg/dL (<150)
[2023-07-02 09:31] LABS: Appearance Urine Hazy; Glucose Urine UA Negative (Negative); Leukocyte Esterase Urine Trace (Negative); Nitrite Urine Negative (Negative); Specific Gravity - Urine >= 1.030 (1.005-1.025); UMIC TRIGGER UACC YES; Urine Blood Small (1+) (Negative); Urine Ketones Negative (Negative); Urine Protein Trace mg/dL (Neg-Trace)
[2023-07-02 09:34] LABS: Color Urine Yellow
[2023-07-02 09:40] LABS: Free T4 (Free Thyroxine) 1.04 ng/dL (0.71-1.85)
[2023-07-02 09:43] LABS: Bacteria Urine 1+ (None Seen); RBC Urine 0-2 /HPF (0-2); Squamous Epithelial Cell Urine 0-2 /HPF (0-2); WBC Urine 0-5 /HPF (0-5)
[2023-07-02 09:44] LABS: Hyaline Casts Urine 0-2 /LPF (0-2)
[2023-07-02 10:56] LABS: Folate 10.3 ng/mL (> or = 4.0); Vitamin B12 389 pg/mL (200-900)
== END 2023-07-02 08:04 | disposition home or self-care (01) ==
LOC: HO.LAB 08:03
PROVIDERS: PCP Internal Medicine; Visit Provider Internal Medicine
DX: R35.0 Frequency of micturition (principal); G62.9 Polyneuropathy, unspecified; E78.00 Pure hypercholesterolemia, unspecified
CPT/HCPCS: 36415; 80053; 80061; 81001; 81003; 82607; 82746; 83036; 84439; 84443; 85025

== ENCOUNTER → 2023-07-18 14:31 | Outpatient (BNVA) | payer BC, MEDICAID, SELFPAY | PROVIDERS: PCP Internal Medicine; Visit Provider Advanced Practice Midwife ==

== ENCOUNTER 2023-10-17 11:08 | Outpatient (AMB) | payer BC, SELFPAY ==
[2023-10-17 11:09] VITALS: BP 136/82; PULSE 79; O2SAT 98; BMI 36.4
--- NOTE | 2023-10-17 11:09 | MHC.PC.OV ---
Vital Signs 10/17/23 11:09 Height 5 ft 2 in Weight 199 lb BMI 36.4 BP 136/82 Blood Pressure Location Lt brachial Position Sitting Pulse 79 Pulse Source Pulse Oximeter Pulse Oximetry (%) 98 Oxygen Delivery Method Room Air Intake Visit Reasons: 3 Month F/U Allergies No Known Allergies Allergy (Verified 10/17/23 11:09) Tobacco use date assessed: 10/17/23 Dental Screening Dental Screen Date: 06/25/23 HPI 3 Month F/U HPI Details 43-year-old obese female with GERD hypertension hypercholesterolemia generalized anxiety disorder coming in for follow-up. Last seen in 06/20/2023 due for mammogram. [facility] Medical History History of miscarriage Allergic rhinitis Anosmia Obesity (BMI 30-39.9) Urge incontinence Hypercholesterolemia Vitamin D deficiency Hypertension GERD (gastroesophageal reflux disease) Complex ovarian cyst Surgical History H/O surgical amputation of finger Family History (Updated 10/17/23 @ 11:52 by Galo Shukla MD) Mother Breast cancer, Onset Age: 60 Heart failure Pulmonary hypertension Scleroderma Father FH: prostate cancer Social History Housing: House Alcohol intake: former Patient Tobacco Use Status: Never used Tobacco e-Cigarette/Vaping Use: Never Used Second Hand Smoke Exposure: No service: No Current occupational status: employed 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 1. Little interest or pleasure in doing things: not at all 2. Feeling down, depressed, or hopeless: not at all 3. Trouble falling or staying asleep, or sleeping too much: not at all 4. Feeling tired or having little energy: not at all 5. Poor appetite or overeating: not at all 6. Feeling bad about yourself - or that you are a failure or have let yourself or your family down: not at all 7. Trouble concentrating on things, such as reading the newspaper or watching television: not at all 8. Moving or speaking so slowly that other people could have noticed. Or the opposite - being so fidgety or restless that you have been moving around a lot more than usual: not at all 9. Thoughts that you would be better off or of hurting yourself in some way: not at all Total score: 0 Depression Screening Interpretation: Negative Depression Screening Done: Yes 42569 - PHQ-9 Billing: Yes Source: Developed by Drs. Maximo Jacob, Viviane Gonzáles, Rakesh Mclalister and colleagues, with an educational andrea from [email or web address]. Thrive Questionnaire Date Thrive assessed: 06/25/23 AUDIT C Alcohol Use Questionnaire (AUDIT-C) 1. How often do you have a drink containing alcohol?: Never 3. How often do you have six or more drinks on one occasion?: Never Total Score: 0 DARCIE-7 AMB Questionnaire DARCIE-7 Date DARCIE - 7 assessed: 06/25/23 Source: Developed by Drs. Maximo Jacob, Rakesh Barnett and colleagues, with an educational andrea from [email or web address]. Physical exam (Primary Care) Vital Signs: Last Vital Signs Pulse 79 10/17/23 11:09 BP 136/82 10/17/23 11:09 Pulse Ox 98 10/17/23 11:09 Oxygen Delivery Method Room Air 10/17/23 11:09 BMI result Body Mass Index 36.4 Tobacco/Smoking Status: Tobacco use Status Tobacco use date assessed 10/17/23 10/17/23 11:10 Patient Tobacco Use Status Never used Tobacco 10/17/23 11:10 e-Cigarette/Vaping Use Never Used 10/17/23 11:10 PHQ-9: PHQ-9 Score PHQ-9: Total score 0 10/17/23 11:10 Depression Screening Interpretation: Negative Thrive Assessment: Date of Thrive Assessment Date Thrive assessed 06/25/23 10/17/23 11:10 Const General: alert; No acute distress Eyes Conjunctivae: conjunctivae normal Resp Auscultation: clear to auscultation bilaterally Cardio Rate: regular rate Rhythm: regular rhythm GI Inspection: Yes normal to inspection Extrem General: Yes normal to inspection and No edema Assessment and Plan Assessment & Plan (1) Obesity (BMI 30-39.9): Code(s): E66.9 - Obesity, unspecified Plan: Diet and exercise (2) Hypertension: Code(s): I10 - Essential (primary) hypertension Qualifiers: Hypertension type: essential hypertension Qualified Code(s): I10 - Essential (primary) hypertension Plan: Continue with blood pressure medication. Decrease salt intake and exercise on amlodipine 5 mg once a day lisinopril hydrochlorothiazide 10/12.5 mg once a day ascvd risck 10 year 2% lifetime 10 percent. due to hypokalemia and frequency will discontinue HCTZ (3) Hypercholesterolemia: Code(s): E78.00 - Pure hypercholesterolemia, unspecified Plan: Avoid fried foods, chicken skin, eggs, butter margarine, pastries and meat. Be it pork or beef they have a lot of cholesterol (4) GERD (gastroesophageal reflux disease): Code(s): K21.9 - Gastro-esophageal reflux disease without esophagitis Qualifiers: Esophagitis presence: without esophagitis Qualified Code(s): K21.9 - Gastro-esophageal reflux disease without esophagitis Plan: Avoid the foods that causes that usually spicy foods, tomato products, juices, coffee, soda and foods that your sensitive to. After eating do not lie down, allow 3-4 hours before in lie down. And keep the head of bed above 30 degrees to avoid the acid from going up. (5) Frequency of micturition: Code(s): R35.0 - Frequency of micturition Plan: Blood work discussed no sugar problem (6) Breast cancer screening by mammogram: Code(s): Z12.31 - Encounter for screening mammogram for malignant neoplasm of breast Plan: Patient is reminded about mammogram Orders: Orders MM tomosynthesis screening BI Today Z12.31 - Encounter for screening mammogram for malignant neoplasm of breast Medications: New lisinopril 10 mg PO DAILY 90 tabs 1RF I10 - Essential (primary) hypertension Discontinued lisinopril-hydrochlorothiazide 10-12.5 mg Discontinued Reason: Doctor's Order 1 tab PO DAILY 30 days 30 tabs 2RF I10 - Essential (primary) hypertension Coding Level of Care Code Est Pt Level 4 (32810) Diagnoses Obesity (BMI 30-39.9) E66.9 Essential hypertension I10 Hypertension type: essential hypertension Hypercholesterolemia E78.00 Gastroesophageal reflux disease without esophagitis K21.9 Esophagitis presence: without esophagitis Frequency of micturition R35.0 Breast cancer screening by mammogram Z12.31
== END 2023-10-17 12:01 | disposition home or self-care (01) ==
PROVIDERS: PCP Internal Medicine; Visit Provider Internal Medicine
DX: I10 Essential (primary) hypertension (principal); E78.00 Pure hypercholesterolemia, unspecified; K21.9 Gastro-esophageal reflux disease without esophagitis; R35.0 Frequency of micturition
CPT/HCPCS: 99214

== ENCOUNTER 2023-10-30 09:16 | Outpatient (REF) | payer BC, SELFPAY | END 2023-10-30 09:17 | disposition home or self-care (01) | LOC: HO.MAMMO 09:16 | PROVIDERS: PCP Internal Medicine; Visit Provider Internal Medicine | DX: Z12.31 Encounter for screening mammogram for malignant neoplasm of breast (principal) | CPT/HCPCS: 77063; 77067 ==

== ENCOUNTER → 2023-10-30 09:30 | Outpatient (BNV) | payer BC, SELFPAY | PROVIDERS: PCP Internal Medicine; Visit Provider Radiology Diagnostic Radiology | DX: Z12.31 Encounter for screening mammogram for malignant neoplasm of breast (principal) | CPT/HCPCS: 77063; 77067 ==

== ENCOUNTER 2024-04-03 10:26 | Outpatient (AMB) | payer BC, SELFPAY ==
--- NOTE | 2024-04-03 10:34 | A.OFFVIS_ITS ---
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 Assistant Quality Manager Required: No Assistant Quality Manager Services: Assistant Quality Manager Present Information Interpreted: clinical only Rapier Insertion Loom Fixer: Rapier Insertion Loom Fixer Present Allergies No Known Allergies Allergy (Verified 04/03/24 10:35) Medication List - Last Reviewed 04/03/24 by Carlita Cooper CMA alprazolam 0.25 mg PO TID PRN amlodipine 5 mg PO DAILY levonorgestrel (Mirena) intrauterine lisinopril 10 mg PO DAILY loratadine (Claritin) 10 mg PO DAILY pantoprazole 40 mg PO DAILY sucralfate 10 mL PO BEDTIME Is last menstrual period known: Yes Last menstrual period: 03/20/24 HPI HPI 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 She has a Mirena IUD it is her 2nd 1 this 1 has been in since 2021 and she still gets her periods on it and always has and is not having any problem with it. She is getting some hot flashes she wakes up sweating in the middle of the night she is having some trouble sleeping. She is stressed out. She was given some medication for anxiety but she does not want to take it because she read that it was addictive and she would rather not go down that road. She is exploring finding a counselor to talk to. She will be seeing her primary care provider coming up soon and will be getting her fasting blood work. She has no concerns about STIs and does not need any blood work for those tests. She does have high blood pressure. She was surprised to note that she has gained weight and is going to try to deal with that. She likes walking for exercise and we did talk about upping her walking. She has a an Apple watch to count steps but she never uses it. Regarding the myometrial cysts seen on the ultrasound last year she did have them noted in the past as well. Pain that she was experiencing last year was figured out to be gastrointestinal in origin and she started on a medication that she takes in the evenings per her primary care provider and it has been helping a lot with no perceived side effects. [facility] Medical History History of miscarriage Allergic rhinitis Anosmia Obesity (BMI 30-39.9) Urge incontinence Hypercholesterolemia Vitamin D deficiency Hypertension GERD (gastroesophageal reflux disease) Complex ovarian cyst Surgical History H/O surgical amputation of finger Family History Mother Breast cancer, Onset Age: 60 Heart failure Pulmonary hypertension Scleroderma Father FH: prostate cancer Social History Housing: House Alcohol intake: former Patient Tobacco Use Status: Never used Tobacco e-Cigarette/Vaping Use: Never Used Second Hand Smoke Exposure: No service: No Current occupational status: employed 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 Cognitive needs: No Hearing needs: No Vision needs: No Female Reproductive History Menstrual Age of Menarche: 12 Duration of menses: 6-7 days Date of last menstrual period: 03/20/24 control method: progestin IUCD Total pregnancies: 3 Full term: 1 Date of last pap smear: 09/10/17 (negative) History of abnormal pap smear: No Date of Mammogram: 10/30/23 (negative) Physical Exam Vital Signs: Last Vital Signs BP 122/78 04/03/24 10:35 BMI result Body Mass Index 36.6 Results Reviewed Results Reviewed: Patient: Tamar Forman MR#: [id number] : 1980 Acct:[id number] Age/Sex: 43 / F ADM Date: 02/09/23 Loc: HO. Attending Dr: Nikki Perkins CNM Ordering Physician: Nikki Perkins CNM Date of Service: 02/09/23 Procedure(s): US pelvic and transvaginal Accession Number(s): [id number] cc: Nikki Perkins CNM; Galo Shukla MD~ EXAMINATION: US PELVIS CLINICAL INFORMATION: Personal history of other diseases of the female genital tract LMP: 4 days ago COMPARISON: Pelvic ultrasound 10/31/2021 TECHNIQUE: Ultrasound of the pelvis is performed using both transabdominal and transvaginal transducers along with Doppler. Transvaginal imaging is performed due to inadequate visualization transabdominally. FINDINGS: Uterus: The uterus is anteverted and measures 7.4 x 2.8 x 5.4 cm. Multiple myometrial cysts are again seen. Linear echogenic focus identified representing an IUD appears in appropriate position. This obscures the endometrial stripe. A small amount of free fluid is seen within the cervix. Adnexa: Both ovaries are normal in appearance. There is normal color flow to the adnexa. There is no ovarian torsion. There is no pelvic ascites or fluid collection. Right ovary measures 2.8 x 1.1 x 1.1 cm. Volume 1.8 mL. Left ovary measures 1.9 x 0.8 x 1.6 cm. Volume 1.3 mL. US/US pelvic and transvaginal IMPRESSION: 1. IUD appears in appropriate position. 2. Multiple myometrial cysts. 3. Normal ovaries. Dictated By: Monica Escalante MD Signed By: <Electronically signed by Monica Escalante MD in OV> 02/12/23 1155 DD/ 1404 TD/TT: Medical Technicians: PLEASE NOTE PATIENT WAS SCHEDULED FOR ULTRASOUND FOLLOW-UP IN ANNUAL EXAM MARCH OF 2023 BUT THAT APPOINTMENT WAS NOT KEPT. PREVIOUS PAP SMEAR NEGATIVE WITH NEGATIVE HPV AUGUST OF 2017. Assessment & Plan Assessment & Plan (1) Presence of 52 mg levonorgestrel-releasing intrauterine device (IUD): Code(s): Z97.5 - Presence of (intrauterine) contraceptive device Category: Social Hx (2) Encounter for annual routine gynecological examination: Code(s): Z01.419 - Encounter for gynecological examination (general) (routine) without abnormal findings Category: Medical (3) Cervical cancer screening: Code(s): Z12.4 - Encounter for screening for malignant neoplasm of cervix Category: Medical (4) Breast cancer screening by mammogram: Code(s): Z12.31 - Encounter for screening mammogram for malignant neoplasm of breast Category: Medical (5) Pelvic pain in female: Comment: Resolved patient realized it is gastrointestinal in origin and that is being treated. 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 She has a Mirena IUD it is her 2nd 1 this 1 has been in since 2021 and she still gets her periods on it and always has and is not having any problem with it. She is getting some hot flashes she wakes up sweating in the middle of the night she is having some trouble sleeping. She is stressed out. She was given some medication for anxiety but she does not want to take it because she read that it was addictive and she would rather not go down that road. She is exploring finding a counselor to talk to. She will be seeing her primary care provider coming up soon and will be getting her fasting blood work. She has no concerns about STIs and does not need any blood work for those tests. She does have high blood pressure. She was surprised to note that she has gained weight and is going to try to deal with that. She likes walking for exercise and we did talk about upping her walking. She has a an Apple watch to count steps but she never uses it. Regarding the myometrial cysts seen on the ultrasound last year she did have them noted in the past as well. Pain that she was experiencing last year was figured out to be gastrointestinal in origin and she started on a medication that she takes in the evenings per her primary care provider and it has been helping a lot with no perceived side effects. She is up-to-date on her mammograms. She has no other health concerns we will see her next year. Orders: Orders Pap Smear Today Z01.419 - Encounter for gynecological examination (general) (routine) without abnormal findings CT NG by PCR Today N89.8 - Other specified noninflammatory disorders of vagina, Z20.2 - Contact with and (suspected) exposure to infections with a predominantly sexual mode of transmission Bacterial Vaginosis Panel Today N89.8 - Other specified noninflammatory disorders of vagina Coding Level of Care Code Est Pt Prev Care 40-64y(08116) Diagnoses Presence of 52 mg levonorgestrel-releasing intrauterine device (IUD) Z97.5 Encounter for annual routine gynecological examination Z01.419 Cervical cancer screening Z12.4 Breast cancer screening by mammogram Z12.31 Pelvic pain in female R10.2
[2024-04-03 10:35] VITALS: BP 122/78; BMI 36.6
== END 2024-04-03 11:16 | disposition home or self-care (01) ==
PROVIDERS: PCP Internal Medicine; Visit Provider Advanced Practice Midwife
DX: Z01.419 Encounter for gynecological examination (general) (routine) without abnormal findings (principal); Z97.5 Presence of (intrauterine) contraceptive device
CPT/HCPCS: 99396; 99459

== ENCOUNTER 2024-04-03 10:26 | Outpatient (REF) | payer BC, SELFPAY ==
[2024-04-04 10:48] LABS: HPV 16,18/45 See PAP report
[2024-04-04 11:33] LABS: Bacterial Vaginosis PCR NEGATIVE (Negative); Candida Group PCR NOT DETECTED (Not Detect); Candida glab krusei PCR NOT DETECTED (Not Detect); Trichomonas vaginalis PCR NOT DETECTED (Not Detect)
[2024-04-04 12:21] LABS: CT PCR NOT DETECTED (Not Detect.); NG PCR NOT DETECTED (Not Detect.)
== END 2024-04-03 10:27 | disposition home or self-care (01) ==
LOC: HO.LNP 10:26
PROVIDERS: PCP Internal Medicine; Visit Provider Advanced Practice Midwife
DX: Z01.419 Encounter for gynecological examination (general) (routine) without abnormal findings (principal); N89.8 Other specified noninflammatory disorders of vagina; Z20.2 Contact with and (suspected) exposure to infections with a predominantly sexual mode of transmission
CPT/HCPCS: 81515; 87491; 87591; 87626; 88175

== ENCOUNTER 2024-04-03 11:10 | Outpatient (REF) | payer BC, SELFPAY | END 2024-04-03 11:11 | disposition home or self-care (01) | LOC: HO.LAB 11:10 | PROVIDERS: Visit Provider Advanced Practice Midwife | DX: Z13.89 Encounter for screening for other disorder (principal) ==

== ENCOUNTER 2024-04-14 17:19 | Outpatient (AMB) | payer BC, SELFPAY ==
[2024-04-14 17:30] VITALS: BP 158/100; PULSE 76; O2SAT 99; BMI 36.4
--- NOTE | 2024-04-14 17:30 | A.OFFPC_ITS ---
Vital Signs 04/14/24 17:30 04/14/24 17:50 Height 5 ft 2 in Weight 199 lb 4 oz BMI 36.4 BP 158/100 H 144/100 H Blood Pressure Location Lt brachial Lt brachial Position Sitting Sitting Pulse 76 Pulse Source Pulse Oximeter Pulse Oximetry (%) 99 Oxygen Delivery Method Room Air Intake Visit Reasons: PE Intake Note: Patient is here today for a physical. 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 She has a history of atypical squamous cells found on a recent Pap test, which requires further follow-up. The patient also has hyperlipidemia, indicated by a recent cholesterol test requiring monitoring. Her diastolic blood pressure was noted to be elevated during today's visit. She is tracking her blood pressure at home and is on amlodipine for hypertension management. No symptoms of dizziness, fainting, nausea, vomiting, or fever have been reported. The patient's family medical history includes breast cancer and scleroderma in the mother and prostate cancer in the father. She mentioned no significant alcohol consumption, no history of smoking, or use of recreational drugs. The patient reported anxiety and is prescribed alprazolam as needed. Her medical history is otherwise significant for the use of a Mirena IUD for contraception. - Blood pressure monitoring at home - Continuous use of contraceptive (Miren a IUD) - Patient advised to maintain a healthy diet and active lifestyle - Follow-up on hyperlipidemia with fasti ng cholesterol test recommended in two to three months - Patient does not consume alcohol or to bacco - No tobacco or recreational drug use - Minimal alcohol consumption; patient r eports decreased tolerance - Located close to the clinic - Has access to a home blood pressure mo nitor - Cardiovascular: Reports elevated diast olic blood pressure - Gastrointestinal: Denies nausea, vomit ing, difficulty swallowing - Respiratory: Denies shortness of breat h - Nervous system: Reports anxiety, heada antonia - General: Denies dizziness, fainting, f ever - Musculoskeletal: Denies pain or discom fort, except for minor stomach issues - Noted atypical squamous cells on Pap t est PFSH Medical History History of miscarriage Allergic rhinitis Anosmia Obesity (BMI 30-39.9) Urge incontinence Hypercholesterolemia Vitamin D deficiency Hypertension GERD (gastroesophageal reflux disease) Complex ovarian cyst Surgical History H/O surgical amputation of finger Family History Mother Breast cancer, Onset Age: 60 Heart failure Pulmonary hypertension Scleroderma Father FH: prostate cancer Social History Housing: House Alcohol intake: former Patient Tobacco Use Status: Never used Tobacco e-Cigarette/Vaping Use: Never Used Second Hand Smoke Exposure: No service: No Current occupational status: employed 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 1. Little interest or pleasure in doing things: not at all 2. Feeling down, depressed, or hopeless: not at all 3. Trouble falling or staying asleep, or sleeping too much: several days 4. Feeling tired or having little energy: several days 5. Poor appetite or overeating: not at all 6. Feeling bad about yourself - or that you are a failure or have let yourself or your family down: not at all 7. Trouble concentrating on things, such as reading the newspaper or watching television: not at all 8. Moving or speaking so slowly that other people could have noticed. Or the opposite - being so fidgety or restless that you have been moving around a lot more than usual: not at all 9. Thoughts that you would be better off or of hurting yourself in some way: not at all Total score: 2 27096 - PHQ-9 Billing: Yes Source: Developed by Drs. Maximo Jacob, Viviane Gonzáles, Rakesh Mcallister and colleagues, with an educational andrea from [employer]. Thrive Questionnaire Date Thrive assessed: 04/14/24 I am a: Patient What is your living situation today?: I have a steady place to live Within the past 12 months, did the food you bought not last and you didn't have the money to get more?: Never true Within the past 12 months, did you worry whether your food would run out before you got money to buy more?: Never true Do you have trouble paying for medicines?: No Do you have trouble getting transportation to medical appointments?: No Do you have trouble paying your heating and electricity bill?: No Do you have trouble taking care of your child, family member or friend?: No Do you have trouble with day-to-day activities such as bathing, preparing meals, shopping, managing finances, etc.?: No Are you currently unemployed and looking for a job?: No Are you interested in more education?: No Please select the resources that you would like help with: None Currently or been in a relationship where the following occur: No concerns reported THRIVE Score: 0 AUDIT C Alcohol Use Questionnaire (AUDIT-C) 1. How often do you have a drink containing alcohol?: Monthly or less 2. How many drinks containing alcohol do you have on a typical day when you are drinking?: 1 or 2 3. How often do you have six or more drinks on one occasion?: Never Total Score: 1 DARCIE-7 AMB Questionnaire DARCIE-7 Date DARCIE - 7 assessed: 04/14/24 Feeling nervous, anxious, or on edge: 1 = Several days Not being able to stop or control worryin = Not at all Worrying too much about different things: 0 = Not at all Trouble relaxin = Not at all Being so restless that it is hard to sit still: 0 = Not at all Becoming easily annoyed or irritable: 1 = Several days Feeling afraid as if something awful might happen: 0 = Not at all Total DARCIE-7 score (0-4 normal; 5-9 mild; 10-14 moderate; 15-21 severe): 2 Source: Developed by Drs. Maximo Jacob, Viviane Gonzáles, Rakesh Mcallister and colleagues, with an educational andrea from [employer]. DARCIE-7 Assessment Billing DARCIE-7 Assessment Tool: DARCIE-7 Assessment 66967 Review of Systems Const Denies poor appetite and Denies weakness Eyes Denies no additional complaints ENT Reports Normal hearing present, Denies dizziness, Denies nasal congestion, Denies tinnitus and Denies sore throat Card Denies chest pain, Denies syncope, Denies rapid heart rate and Denies dyspnea Resp Denies cough and Denies dyspnea GI Denies change in stool character, Reports constipation, Denies diarrhea, Denies nausea and Denies vomiting Denies urinary frequency, Denies difficulty voiding and Denies dysuria Neuro Reports Normal hearing present, Denies confusion, Denies dizziness, Denies syncope and Denies weakness Psych Denies confusion Physical exam (Primary Care) Vital Signs: Last Vital Signs Pulse 76 04/14/24 17:30 BP 144/100 H 04/14/24 17:50 Pulse Ox 99 04/14/24 17:30 Oxygen Delivery Method Room Air 04/14/24 17:30 BMI result Body Mass Index 36.4 Tobacco/Smoking Status: Tobacco use Status Tobacco use date assessed 10/17/23 04/14/24 17:31 Patient Tobacco Use Status Never used Tobacco 04/14/24 17:31 e-Cigarette/Vaping Use Never Used 04/14/24 17:31 PHQ-9: PHQ-9 Score PHQ-9: Total score 2 04/14/24 17:46 Thrive Assessment: Date of Thrive Assessment Date Thrive assessed 04/14/24 04/14/24 17:31 Currently or been in a relationship where the following occur: No concerns reported Const General: No confusion Orientation/consciousness: No confusion HENMT Head: Yes normocephalic Ears: external ears normal and TM's normal bilaterally Face and sinus: Yes normal facial exam Mouth: moist mucous membranes Throat: Yes tonsils normal Eyes Conjunctivae: conjunctivae normal Pupils: Equal, round and reactive pupils present and Pupil accommodation reflex normal Direct Ophthalmoscopy: normal light reflex Neck Neck: No lymphadenopathy Thyroid: Thyroid normal Chest Chest palpation & inspection: normal inspection of the chest Resp Effort & Inspection: normal respiratory effort and no audible wheezes Auscultation: clear to auscultation bilaterally, no crackles, no wheezes and edilma g sounds not diminished Cardio Rate: regular rate Rhythm: regular rhythm Peripheral pulses: radial pulses present and dorsalis pedis present GI Palpation (GI): no masses Auscultation: normal bowel sounds and normoactive bowel sounds Rectal Exam - Female: deferred Skin General skin exam: no rashes or lesions noted Rashes: no rashes Neuro General: No confusion Cranial nerves: Yes Equal, round and reactive pupils present and Yes Normal hearing present Cognition (Neuro): normal cognition Gait exam (Neuro): Normal gait present Motor exam (neuro): 5/5 motor strength present throughout Deep tendon reflexes (DTR's): Right brachioradialis reflex intensity grade: 2+, Left brachioradialis reflex intensity grade: 2+, Right patellar reflex intensity grade: 2+ and Left patellar reflex intensity grade: 2+ Extrem General: No edema Office Procedures Flu Questionnaire Does the patient have a severe egg allergy?: No Immunizations Fluarix Triv 2070-3966 (PF) 45 mcg (15 mcg x 3)/0.5 mL IM syringe Performing Provider: Galo Shukla MD [facility] [place] [facility] Documented (not given) by: OZIEL Jordan on 04/14/24 17:36 Reason Not Given: Patient Refused Coding Level of Care Code Est Pt Prev Care 40-64y(80372) Diagnoses Annual physical exam Z00.00 Essential hypertension I10 Hypertension type: essential hypertension Hypercholesterolemia E78.00 Gastroesophageal reflux disease without esophagitis K21.9 Esophagitis presence: without esophagitis Obesity (BMI 30-39.9) E66.9 Cervical cancer screening Z12.4 Colon cancer screening Z12.11 Additional Codes DARCIE-7 Assessment Billing - DARCIE-7 Assessment Tool: DARCIE-7 Assessment 55091 ([id number]) PHQ-9 - 67201 - PHQ-9 Billing: Yes ([id number]) Assessment & Plan Assessment & Plan (1) Annual physical exam: Code(s): Z00.00 - Encounter for general adult medical examination without abnormal findings Category: Medical (2) Hypertension: Code(s): I10 - Essential (primary) hypertension Category: Medical Qualifiers: Hypertension type: essential hypertension Qualified Code(s): I10 - Essential (primary) hypertension (3) Hypercholesterolemia: Code(s): E78.00 - Pure hypercholesterolemia, unspecified Category: Medical (4) GERD (gastroesophageal reflux disease): Code(s): K21.9 - Gastro-esophageal reflux disease without esophagitis Category: Medical Qualifiers: Esophagitis presence: without esophagitis Qualified Code(s): K21.9 - Gastro-esophageal reflux disease without esophagitis (5) Obesity (BMI 30-39.9): Code(s): E66.9 - Obesity, unspecified Category: Medical (6) Cervical cancer screening: Comment: 04/03/2024 Pap shows ASCUS with negative HPV.; her ASCCP they recommend 3 year follow-up. Code(s): Z12.4 - Encounter for screening for malignant neoplasm of cervix Category: Medical (7) Colon cancer screening: Code(s): Z12.11 - Encounter for screening for malignant neoplasm of colon Category: Medical Plan - Continue amlodipine for blood pressure management - Referral made to gastroenterology for further assessment - Schedule for follow-up fasting cholesterol test in two to three months - Monitor blood pressure daily with home device and track results - Consider optometry referral for vision correction as needed - Family history of cancer noted, recommended genetic counseling not discussed but considered essential for long-term planning During today's visit, I discussed the presence of atypical squamous cells found on the Pap test with the patient, emphasizing the need for additional follow-up. We reviewed the patient's current medications, including amlodipine for hypertension. The importance of monitoring blood pressure was underscored, along with maintaining a diet and lifestyle conducive to managing hyperlipidemia. I advised scheduling a follow-up for the cholesterol test and discussed the option of an eye exam due to reported vision difficulties. The patient was informed about family cancer history implications but did not show interest in genetic counseling at this time. We went over the need for active management of anxiety symptoms using prescribed alprazolam as needed. Patient declined flu vaccination not withstanding ongoing seasonal concerns. Continue taking amlodipine as prescribed for blood pressure management - Schedule and attend follow-up cholesterol test after fasting - Monitor blood pressure at home daily; keep a log of readings - Consider optometry evaluation for glasses if vision issues persist - Maintain a healthy diet and active lifestyle to assist in managing cholesterol levels - Avoid excessive alcohol consumption and abstain from smoking - Follow up in three months or sooner if symptoms change or new concerns arise Orders: Orders Vitamin B12 and Folate Today E78.00 - Pure hypercholesterolemia, unspecified Vitamin D 25-OH Total Today E78.00 - Pure hypercholesterolemia, unspecified Influenza [id number] Immunization Today Z23 - Encounter for immunization Complete Blood Count Auto Diff Today E78.00 - Pure hypercholesterolemia, unspecified Comprehensive Met. Panel Today E78.00 - Pure hypercholesterolemia, unspecified Free T4 (Free Thyroxine) Today E78.00 - Pure hypercholesterolemia, unspecified Lipid Panel Today E78.00 - Pure hypercholesterolemia, unspecified Thyroid Stimulating Hormone Today E78.00 - Pure hypercholesterolemia, unspecified UA CC w/rflx Micro + Cult Today E78.00 - Pure hypercholesterolemia, unspecifie d, R30.0 - Dysuria Referrals Gastroenterology Referral Z12.11 - Encounter for screening for malignant neoplasm of colon Medications: New hydrochlorothiazide 12.5 mg PO DAILY 90 tabs 3RF I10 - Essential (primary) hypertension
[2024-04-14 17:50] VITALS: BP 144/100
== END 2024-04-14 18:06 | disposition home or self-care (01) ==
PROVIDERS: PCP Internal Medicine; Visit Provider Internal Medicine
DX: Z00.00 Encounter for general adult medical examination without abnormal findings (principal); I10 Essential (primary) hypertension; E78.00 Pure hypercholesterolemia, unspecified; K21.9 Gastro-esophageal reflux disease without esophagitis; E66.9 Obesity, unspecified; Z68.36 Body mass index [BMI] 36.0-36.9, adult; Z12.11 Encounter for screening for malignant neoplasm of colon

== ENCOUNTER → 2024-04-14 17:19 | Outpatient (BNVA) | payer BC, SELFPAY | PROVIDERS: PCP Internal Medicine; Visit Provider Internal Medicine | DX: Z00.00 Encounter for general adult medical examination without abnormal findings (principal); I10 Essential (primary) hypertension; E78.00 Pure hypercholesterolemia, unspecified; K21.9 Gastro-esophageal reflux disease without esophagitis; E66.9 Obesity, unspecified; Z68.36 Body mass index [BMI] 36.0-36.9, adult; Z79.899 Other long term (current) drug therapy; Z28.21 Immunization not carried out because of patient refusal | CPT/HCPCS: 96127 ==

== ENCOUNTER 2024-06-14 10:19 | Outpatient (REF) | payer BC, SELFPAY ==
[2024-06-14 10:29] LABS: MANUAL DIFF FLAG NO
[2024-06-14 11:04] LABS: Basophils Absolute Auto 0.1 X10*3/uL (0.0-0.2); Eosinophils Absolute Auto 0.3 X10*3/uL (0.0-0.4); Eosinophils Percent Auto 3.8 % (0-4); Hematocrit 42.5 % (37.0-47.0); Hemoglobin 14.7 g/dl (12.0-16.0); Imm Gran Abs Auto 0.02 X10*3/uL (0.00-0.03); Imm Gran Pct Auto 0.2 % (0.0-0.4); Mean Corpuscular HGB Conc 34.6 g/dl (31.0-35.0); Mean Corpuscular Hemoglobin 29.2 pg (27.0-33.0); Mean Corpuscular Volume 84.5 fL (80.0-98.0); Mean Platelet Volume 9.8 fL (9.4-12.3); Monocytes Absolute Auto 0.5 X10*3/uL (0.1-1.2); Monocytes Percent Auto 5.4 % (2-11); Neutrophils Absolute Auto 4.5 x10*3/uL (2.0-8.3); Neutrophils Percent Auto 53.6 % (45-73); Platelet Count 374 X10*3/uL (160-400); Red Blood Count 5.03 X10*6/uL (4.20-5.50); Red Cell Distribution Width 13.2 % (11.0-16.0); White Blood Count 8.3 X10*3/uL (4.8-10.8)
[2024-06-14 11:28] LABS: Appearance Urine Clear; Color Urine Yellow; Glucose Urine UA Negative (Negative); Leukocyte Esterase Urine Small (1+) (Negative); Nitrite Urine Negative (Negative); UMIC TRIGGER UACC YES; Urine Blood Small (1+) (Negative); Urine Ketones Trace mg/dL (Negative); Urine Protein Trace mg/dL (Neg-Trace)
[2024-06-14 12:04] LABS: Alanine Aminotransferase 29 U/L (0-31); Albumin Level 4.3 g/dL (3.5-5.0); Alkaline Phosphatase 84 U/L (39-117); Anion Gap 14 (12-20); Aspartate Amino Transferase 23 U/L (5-31); Bilirubin Total 0.6 mg/dL (0.0-1.0); Blood Urea Nitrogen 8 mg/dL (9-16); Calcium 9.3 mg/dL (8.4-10.2); Carbon Dioxide 26 mmol/L (22-29); Chloride 105 mmol/L (96-108); Cholesterol 195 mg/dL (<200); Estimated Glomerular Filt Rate > 60; Glucose Random 87 mg/dL (60-115); HDL Cholesterol 39 mg/dL (>40); LDL Cholesterol Calculated 121 mg/dL (<100); Potassium 3.2 mmol/L (3.3-5.1); Sodium 142 mmol/L (135-145); Total Protein 8.1 g/dL (6.5-8.0); Triglycerides 177 mg/dL (<150)
[2024-06-14 12:06] LABS: Free T4 (Free Thyroxine) 1.02 ng/dL (0.71-1.85); Thyroid Stimulating Hormone 0.97 uIU/mL (0.32-4.0); Vitamin D 25-OH Total 25.3 ng/mL (>30)
[2024-06-14 12:09] LABS: Bacteria Urine 1+ (None Seen); Hyaline Casts Urine 0-2 /LPF (0-2); UACC Culture Trigger YES
[2024-06-14 13:09] LABS: Folate 15.7 ng/mL (> or = 4.0); Vitamin B12 421 pg/mL (200-900)
== END 2024-06-14 10:20 | disposition home or self-care (01) ==
LOC: HO.LAB 10:19
PROVIDERS: PCP Internal Medicine; Visit Provider Internal Medicine
DX: E78.00 Pure hypercholesterolemia, unspecified (principal); R30.0 Dysuria
CPT/HCPCS: 36415; 80053; 80061; 81001; 82306; 82607; 82746; 84439; 84443; 85025; 87086

== ENCOUNTER 2024-10-06 15:41 | Emergency (ER) | payer BC, SELFPAY ==
--- NOTE | ~2024-10-06 | XR_ITS ---
EXAMINATION: XR CHEST CLINICAL INFORMATION: chest pain COMPARISON: 12/13/2021 TECHNIQUE: 2 views of the chest were obtained. FINDINGS: The cardiac, hilar, and mediastinal contours are normal. The lungs are clear bilaterally. There is no pneumothorax or pleural effusion. There is no focal osseous or soft tissue abnormality. XR/XR chest 2V IMPRESSION: No active pulmonary disease. Electronically signed by: Arpit Leone MD 10/06/2024 04:35 PM EDT
--- NOTE | 2024-10-06 15:46 | ECG_ITS ---
Test Reason : ekg changes Blood Pressure : */* mmHG Vent. Rate : 65 BPM Atrial Rate : 65 BPM P-R Int : 168 ms QRS Dur : 82 ms QT Int : 416 ms P-R-T Axes : 42 17 26 degrees QTcB Int : 432 ms Normal sinus rhythm with sinus arrhythmia Normal ECG When compared with ECG of 13-Dec-2021 15:48, No significant change was found Referred By: Generic ED Physician Electronically Signed By: Dominik Roman
[2024-10-06 16:16] VITALS: BP 189/100; PULSE 79; RESP 16; TEMP 36.9; O2SAT 99; BMI 36.1
--- NOTE | 2024-10-06 16:17 | ED.GENADULT ---
HPI - General Adult General Chief complaint: Chest Pain Stated complaint: Abnormal EKG, Sent form [facility] Time Seen by Provider: 10/06/24 17:41 Source: patient Mode of arrival: ambulatory Limitations: no limitations History of Present Illness ED Provider: DR. Hancock HPI narrative: 44-year-old female referred from urgent care for further evaluation of chest pain started since 05:00 awoke the patient up from sleep pain felt like burning sensation retrosternal radiates to the throat, patient had pork chops at 21:00 the night before and think it is acid reflux patient took [id number]-rbomclv antacid with no relief of her pain, no radiation to the left shoulder or left jaw, no association with shortness of breath, no fever, no chills, no lower extremity swelling or tenderness, no recent travel, no history of blood clots. No cardiac history. Patient with history of hypertension taking hydrochlorothiazide and amlodipine for it. Related Data Home Medications ?Medication ?Instructions ?Recorded ?Confirmed levonorgestrel 21 mcg/24 hr (up to intrauterine 04/03/24 04/14/24 8 years) 52 mg intrauterine device (Mirena) Previous Rx's ?Medication ?Instructions ?Recorded loratadine 10 mg tablet (Claritin) 10 mg PO DAILY #90 tabs 09/27/22 alprazolam 0.25 mg tablet 0.25 mg PO TID PRN anxiety #25 tabs 06/25/23 pantoprazole 40 mg tablet,delayed 40 mg PO DAILY #90 tabs 06/25/23 release sucralfate 100 mg/mL oral 10 ml PO BEDTIME #400 mL 06/25/23 suspension hydrochlorothiazide 12.5 mg tablet 12.5 mg PO DAILY #90 tabs 04/14/24 amlodipine 5 mg tablet 5 mg PO DAILY #90 tabs 06/09/24 omeprazole 40 mg capsule,delayed 40 mg PO DAILY 14 days #14 caps 10/06/24 release Allergies Allergy/AdvReac Type Severity Reaction Status Date / Time lisinopril AdvReac Intermediate Headache Verified 10/06/24 16:19 Review of Systems Review of Systems: All other systems are reviewed and are negative Constitutional: Reports as per HPI and Reports no additional constitutional complaints Eyes: Reports as per HPI and Reports no additional eye complaints Reports system reviewed and no additional complaints, except as documented Cardiovascular: Reports as per HPI and Reports no additional cardiovascular complaints Respiratory: Reports as per HPI and Reports no additional respiratory complaints Gastrointestinal: Reports as per HPI and Reports no additional gastrointestinal complaints Genitourinary: Reports no additional female genitourinary complaints Musculoskeletal: Reports no additional musculoskeletal complaints Skin/Breast: Reports system reviewed and no additional complaints, except as docu Psychiatric: Reports no additional psychiatric complaints Endocrine: Reports no additional endocrine complaints Hematologic/Lymphatic: Reports no additional hematologic/lymphatic complaints Allergic/Immunologic: Reports no additional allergic/immunologic complaints Reports system reviewed and no additional complaints, except as documented and Reports Abnormal speech present [facility] Past Medical History Medical History History of miscarriage Allergic rhinitis Anosmia Obesity (BMI 30-39.9) Urge incontinence Hypercholesterolemia Vitamin D deficiency Hypertension GERD (gastroesophageal reflux disease) Complex ovarian cyst Surgical History H/O surgical amputation of finger Family History Family History Mother Breast cancer, Onset Age: 60 Heart failure Pulmonary hypertension Scleroderma Father FH: prostate cancer Social History Social History Housing: House Alcohol intake: former Patient Tobacco Use Status: Never used Tobacco Smoked in Last 30 Days: No e-Cigarette/Vaping Use: Never Used Second Hand Smoke Exposure: No Use of substances other than those prescribed or required for medical reasons: No Advance Directives: No Advance Directives Information Provided: No Do you have a plan to hurt others: No Plan Patient : No service: No Current occupational status: employed 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 Blood pressure elevated. Heart rate normal. Respiratory rate normal. Temperature normal. Oxygen saturation normal. Appearance: Alert. Oriented X3. No acute distress. Head: Normal external exam. Normocephalic. Atraumatic. No Nava signs noted. No raccoon eyes noted Eyes: PERRLA. EOMI. Conjunctiva and sclera normal. Eyelids normal. ENT: TM's Normal. Pharynx normal. Uvula midline. Moist mucous membranes. No trismus noted. No drooling noted. No muffled voice noted. Neck: Normal inspection. Neck supple. FROM. No adenopathy. Thyroid Normal. No meningeal signs. No neck mass noted. CVS: Normal heart rate and rhythm. Heart sound normal. No murmurs noted. Pulses normal throughout. Respiratory: No respiratory distress. Painless inspiration. Breath sounds normal. No wheezes/rales/rhonchi noted. Chest nontender. No accessory muscle usage noted or decreased air movement noted. Abdomen: Soft , mild epigastric tenderness, Bowel sounds normal in all 4 quadrants. No distention noted. No organomegaly noted. No visible injury noted. Back: No CVA tenderness. Full range of motion noted. Skin: Skin warm and dry. Normal skin color. Normal skin turgor. No rashes/lesions/lacerations noted. Extremities: No lower extremity edema. Extremities exhibit normal range of motion. Extremities nontender. Neuro: Oriented X 3. Cranial nerve exam: II-XII are grossly intact No motor deficit. No sensory deficit. Reflexes normal. Course Course Course Narrative: This is an RME performed by Deidre Farmer CNP: Additional HPI, ROS, PE not included below will be deferred to primary provider. Patient is a 44-year-old female presents emergency department for evaluation. She awoke from her sleep at 05:00 today with mid anterior chest pain described as a burning sensation. Thought this was due to acid reflux. However took multiple OTC antacids without any incision. She presented to an urgent care for evaluation, had an EKG done it was referred to emergency department for further evaluation due to abnormal findings, does not have a copy of the ECG with her. Plan: Serum labs, ECG, CXR Reevaluation(s) Reevaluation #1: Atypical chest pain likely secondary to GERD after eating pork chops last night. EKG shows no ischemic changes, troponin is negative x2. Patient felt better with Maalox and IV Pepcid. Will discharge on Prilosec. Patient was instructed to avoid eating greasy/fatty food before bedtime, elevate the head of the bed. Time: 20:42 Medications Administered Discontinued Medications Generic Name Dose Route Start Last Admin Trade Name Freq PRN Reason Stop Dose Admin Al Hydroxide/Mg Hydroxide 30 ml 10/06/24 19:01 10/06/24 19:39 Magnesium Hydrox/Alum Hydrox 30 Ml Oral.Susp PO 10/06/24 19:02 30 ml ONCE ONE Administration Amlodipine Besylate 5 mg 10/06/24 19:01 10/06/24 19:40 Amlodipine Besylate 5 Mg Tablet PO 10/06/24 19:02 5 mg ONCE ONE Administration Protocol Famotidine 20 mg 10/06/24 19:01 10/06/24 19:37 Famotidine/Pf 20 Mg/2 Ml Vial IVPUSH 10/06/24 19:02 20 mg ONCE ONE Administration Potassium Chloride 10 meq in 100 mls @ 100 mls/hr 10/06/24 17:42 10/06/24 18:52 Potassium Chloride/H20 IV 10/06/24 18:41 Infused ONCE ONE Infusion Potassium Chloride 40 meq 10/06/24 17:42 10/06/24 17:52 Potassium Chloride Packet 20 Meq Packet PO 10/06/24 17:43 40 meq ONCE ONE Administration Medical Decision Making Differential Diagnosis Differential Diagnoses: The differential diagnosis associated with the presentation includes (ACS, pulmonary embolism, pneumonia, pneumothorax, pleural effusion, electrolyte derangement, severe anemia.) Admission/Observation Consideration of admission/observation: Escalation of care including admission/observation considered Lab Data MDM Lab Attestation statement: I reviewed the patient's lab results. 10/06/24 16:47 10/06/24 19:37 Labs: Lab Results 10/06/24 10/06/24 Range/Units 16:47 19:37 WBC 11.2 H (4.8-10.8) X10*3/uL RBC 4.95 (4.20-5.50) X10*6/uL Hgb 14.4 (12.0-16.0) g/dl Hct 42.6 (37.0-47.0) % MCV 86.1 (80.0-98.0) fL MCH 29.1 (27.0-33.0) pg MCHC 33.8 (31.0-35.0) g/dl RDW 13.4 (11.0-16.0) % Plt Count 335 (160-400) X10*3/uL MPV 9.6 (9.4-12.3) fL Immature Gran % (Auto) 0.2 (0.0-0.4) % Neut % (Auto) 68.4 (45-73) % Lymph % (Auto) 22.8 (20-40) % [place] % (Auto) 6.0 (2-11) % Eos % (Auto) 1.7 (0-4) % Baso % (Auto) 0.9 (0-2) % Lymph # (Auto) 2.6 (1.2-4.9) X10*3/uL [place] # (Auto) 0.7 (0.1-1.2) X10*3/uL Eos # (Auto) 0.2 (0.0-0.4) X10*3/uL Baso # (Auto) 0.1 (0.0-0.2) X10*3/uL Abs Immat Gran (auto) 0.02 (0.00-0.03) X10*3/uL Absolute Neuts (auto) 7.7 (2.0-8.3) x10*3/uL Absolute Nucleated RBC 0.000 (0.0-0.012) X10*3/uL Nucleated RBC % (auto) 0.0 (0.0-0.2) /100WBC Sodium 137 (135-145) mmol/L Potassium 3.1 L 3.7 (3.3-5.1) mmol/L Chloride 102 (96-108) mmol/L Carbon Dioxide 26 (22-29) mmol/L Anion Gap 12 (12-20) BUN 8 L (9-16) mg/dL Creatinine 0.63 (0.5-1.4) mg/dL Estim Creat Clear Calc 117.3 Estimated GFR > 60 Random Glucose 93 (60-115) mg/dL Calcium 9.1 (8.4-10.2) mg/dL Magnesium 2.1 (1.6-2.6) mg/dL Total Bilirubin 0.9 (0.0-1.0) mg/dL AST 21 (5-31) U/L ALT 22 (0-31) U/L Alkaline Phosphatase 88 (39-117) U/L Troponin I High Sens < 2.7 < 2.7 (<3.5-17.0) ng/L Total Protein 7.8 (6.5-8.0) g/dL Albumin 4.5 (3.5-5.0) g/dL Lipase 17 (8-78) U/L Independent Interpretation I performed an independent interpretation of an: Plain X-Ray (No active pulmonary disease.) Radiology Impression Discussion of test interpretation with radiology: I have reviewed the radiologist's reading. Discharge Plan Discharge Clinical Impression: Chest pain, Chest pain due to GERD Patient Disposition: Home, Self-Care Instructions: GERD (Gastroesophageal Reflux Disease) (ED) Prescriptions: New omeprazole 40 mg capsule,delayed release(DR/EC) 40 mg PO DAILY 14 Days Qty: 14 0RF No Action loratadine [Claritin] 10 mg tablet 10 mg PO DAILY Qty: 90 3RF amlodipine 5 mg tablet 5 mg PO DAILY Qty: 90 1RF alprazolam 0.25 mg tablet 0.25 mg PO TID PRN (Reason: anxiety) Qty: 25 0RF Mirena 20 mcg/24 hours (7 yrs) 52 mg intrauterine device 1 device intrauterine ONCE Qty: 1 0RF Mirena 21 mcg/24hr (up to 8 yrs) 52 mg intrauterine device intrauterine pantoprazole 40 mg tablet,delayed release (DR/EC) 40 mg PO DAILY Qty: 90 2RF Rx Instructions: take one tablet half an hour before breakfast sucralfate 100 mg/mL suspension 10 ml PO BEDTIME Qty: 400 3RF hydrochlorothiazide 12.5 mg tablet 12.5 mg PO DAILY Qty: 90 3RF Print Language: [place]se
[2024-10-06 16:59] LABS: MANUAL DIFF FLAG NO
[2024-10-06 17:01] LABS: Hematocrit 42.6 % (37.0-47.0); Hemoglobin 14.4 g/dl (12.0-16.0); Imm Gran Abs Auto 0.02 X10*3/uL (0.00-0.03); Imm Gran Pct Auto 0.2 % (0.0-0.4); Lymphocytes Absolute Auto 2.6 X10*3/uL (1.2-4.9); Mean Corpuscular HGB Conc 33.8 g/dl (31.0-35.0); Mean Corpuscular Hemoglobin 29.1 pg (27.0-33.0); Mean Corpuscular Volume 86.1 fL (80.0-98.0); NRBC Abs Auto 0.000 X10*3/uL (0.0-0.012); NRBC Pct Auto 0.0 /100WBC (0.0-0.2); Platelet Count 335 X10*3/uL (160-400); Red Blood Count 4.95 X10*6/uL (4.20-5.50); White Blood Count 11.2 X10*3/uL (4.8-10.8)
[2024-10-06 17:04] VITALS: BP 182/103; PULSE 66; RESP 18; O2SAT 98
[2024-10-06 17:11] VITALS: PULSE 64
[2024-10-06 17:15] LABS: Alanine Aminotransferase 22 U/L (0-31); Albumin Level 4.5 g/dL (3.5-5.0); Alkaline Phosphatase 88 U/L (39-117); Anion Gap 12 (12-20); Aspartate Amino Transferase 21 U/L (5-31); Blood Urea Nitrogen 8 mg/dL (9-16); Calcium 9.1 mg/dL (8.4-10.2); Carbon Dioxide 26 mmol/L (22-29); Chloride 102 mmol/L (96-108); Creatinine Clr Calc Pharmacy 117.3; Estimated Glomerular Filt Rate > 60; Lipase 17 U/L (8-78); Magnesium 2.1 mg/dL (1.6-2.6); Potassium 3.1 mmol/L (3.3-5.1); Sodium 137 mmol/L (135-145); Total Protein 7.8 g/dL (6.5-8.0)
[2024-10-06 17:24] LABS: Troponin-I High Sensitivity < 2.7 ng/L (<3.5-17.0)
[2024-10-06] MEDS: Potassium Chloride/H20 10 MEQ/100 ML PIGGYBACK 100 MEQ IV (17:52)
[2024-10-06] MEDS: Potassium Chloride Packet 20 MEQ PACKET 40 MEQ PO (17:52)
[2024-10-06] MEDS: Magnesium Hydrox/Alum Hydrox 30 ML ORAL.SUSP PO (19:39)
[2024-10-06 19:40] VITALS: BP 182/103
[2024-10-06 19:56] LABS: Potassium 3.7 mmol/L (3.3-5.1)
[2024-10-06 20:12] LABS: Troponin-I High Sensitivity < 2.7 ng/L (<3.5-17.0)
[2024-10-06 20:34] VITALS: BP 152/82; PULSE 68; TEMP 37.1; O2SAT 99
[2024-10-06 20:51] VITALS: BP 152/82; PULSE 68; RESP 16; TEMP 37.1; O2SAT 99
== END 2024-10-06 21:00 | disposition home or self-care (01) ==
PROVIDERS: Nurse Practitioner Family; Emergency Provider Emergency Medicine; PCP Internal Medicine
DX: R07.89 Other chest pain (principal); K21.9 Gastro-esophageal reflux disease without esophagitis; Z79.899 Other long term (current) drug therapy
CPT/HCPCS: 36415; 71046; 80053; 83690; 83735; 84132; 84484; 85025; 93005; 96365; 96375; 99284; 99285; J1308; J3480

== ENCOUNTER → 2024-10-06 15:46 | Outpatient (BNV) | payer BC, SELFPAY | PROVIDERS: Emergency Provider Emergency Medicine; PCP Internal Medicine; Visit Provider Internal Medicine Cardiovascular Disease | DX: Z13.6 Encounter for screening for cardiovascular disorders (principal) | CPT/HCPCS: 93010 ==

== ENCOUNTER → 2024-10-06 16:21 | Outpatient (BNV) | payer BC, SELFPAY | PROVIDERS: PCP Internal Medicine; Visit Provider Radiology Diagnostic Radiology | DX: R07.89 Other chest pain (principal) | CPT/HCPCS: 71046 ==

== ENCOUNTER 2024-10-08 10:21 | Outpatient (AMB) | payer BC, SELFPAY ==
--- NOTE | 2024-10-08 10:27 | A.OFFVIS_ITS ---
Vital Signs 10/08/24 10:35 Height 5 ft 2 in Weight 196 lb 3.382 oz BMI 35.9 BP 147/73 H Blood Pressure Location Lt brachial Position Sitting Pulse 73 Intake Visit Reasons: follow up/pre colo Intake Note: Tamar presents in the office as a follow up to discuss having a colonoscopy. CC: She states that her only concern is the acid reflux. 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 Continue avoiding dietary triggers and late night snacking. Staying upright for minimum 3 hours after meals discussed with patient. Discussed with patient low FODMAP diet. List of food recommended as well as list of food to avoid given to patient. Patient will return in 4 months we will discuss going for colonoscopy. Patient will be turning 44 in December. Denies any family history of colorectal cancer. No melena, hematochezia, unintentional weight loss or ribbon like stools. Refilled pantoprazole take one tablet half an hour before breakfast 40 mg PO DAILY 90 tabs 2RF K21.9 sucralfate 10 mL PO BEDTIME 400 mL 3RF K21.9 TODAY'S VISIT Patient is here today for follow-up and to discuss going for colonoscopy. Patient reports that couple days ago she went to urgent care as she was having epigastric discomfort. Patient was sent to ER. Patient reports that her workup was negative for any cardiac issues and she was sent home with omeprazole. Patient reports that omeprazole has not helped. States that she was unable to get pantoprazole as her insurance is not covering. Patient reports epigastric pain postprandially. Otherwise patient reports that she is feeling well. Denies any issues with anesthesia in the past. No history of sleep apnea. Moving her bowels without any issues. Denies dyspepsia, dysphagia or odynophagia. No family history of CRC. Not on any anticoagulation medication PFSH Medical History History of miscarriage Allergic rhinitis Anosmia Obesity (BMI 30-39.9) Urge incontinence Hypercholesterolemia Vitamin D deficiency Hypertension GERD (gastroesophageal reflux disease) Complex ovarian cyst Surgical History H/O surgical amputation of finger Family History Mother Breast cancer, Onset Age: 60 Heart failure Pulmonary hypertension Scleroderma Father FH: prostate cancer Social History Housing: House Alcohol intake: former Patient Tobacco Use Status: Never used Tobacco e-Cigarette/Vaping Use: Never Used Second Hand Smoke Exposure: No service: No Current occupational status: employed 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 Cognitive needs: No Hearing needs: No Vision needs: No Female Reproductive History Menstrual Age of Menarche: 12 Review of Systems Const Denies weight gain and Denies weight loss ENT Reports no additional complaints, Denies dysphagia and Denies odynophagia Card Reports no additional complaints Resp Reports no additional complaints GI Denies abdominal pain, Denies belching, Denies melena, Denies bloating, Denies change in bowel habits, Denies dysphagia, Denies excessive flatus, Denies dyspepsia, Denies heartburn, Denies diarrhea, Denies loose stools, Denies nausea, Denies odynophagia and Denies vomiting Musc Reports no additional complaints Neuro Reports no additional complaints Psych Reports no additional complaints Endo Reports no additional complaints Physical Exam Vital Signs: Last Vital Signs Pulse 73 10/08/24 10:35 BP 147/73 H 10/08/24 10:35 BMI result Body Mass Index 35.9 Const General: healthy appearing, no acute distress and well developed Nutritional Appearance: obese Orientation/consciousness: patient oriented x3 Resp Effort & Inspection: normal respiratory effort, able to speak in complete sentences, no tracheal deviation and symmetric chest movement Auscultation: clear to auscultation bilaterally Cardio Rate: regular rate GI Inspection: Yes normal to inspection, No distended and Yes obesity Palpation (GI): Soft to palpation, not firm, nontender and No hepatosplenomegaly present Auscultation: normal bowel sounds General: Yes no CVA tenderness Back/Spine/Pelvis Back: no CVA tenderness Skin General skin exam: elasticity normal, turgor normal and dry skin Neuro General: patient oriented x3 Psych Appearance: grossly normal Mental Status: mental status grossly normal Affect: normal affect Assessment & Plan Assessment & Plan (1) GERD (gastroesophageal reflux disease): Code(s): K21.9 - Gastro-esophageal reflux disease without esophagitis Category: Medical Qualifiers: Esophagitis presence: without esophagitis Qualified Code(s): K21.9 - Gastro-esophageal reflux disease without esophagitis (2) Colon cancer screening: Code(s): Z12.11 - Encounter for screening for malignant neoplasm of colon Category: Medical Plan Will send patient script for lansoprazole. Patient will call us if this will not be effective. Avoid dietary triggers and late night snacking. Staying upright for minimum 3 hours after meals discussed with patient. Patient is due to go for colonoscopy. No family history of CRC. Denies melena, hematochezia, unintentional weight loss or ribbon like stools. What to expect before during and after procedure discussed with patient. Stressed the importance of good bowel prep and clear liquid diet day before procedure. I will see her after the procedure, sooner on as needed basis. She is agreeable to this plan and verbalizes understanding of instructions. She was given the opportunity to ask questions and all questions answered. Thank you for allowing me to participate in her care Medications: New lansoprazole 30 mg PO DAILY 30 caps 3RF K21.9 - Gastro-esophageal reflux disease without esophagitis bisacodyl (Dulcolax (bisacodyl)) take 4 tabs at noon the day before your colonoscopy 20 mg (4 x 5 mg) PO ONCE 4 tabs 0RF constipation 1 day Z12.11 - Encounter for screening for malignant neoplasm of colon polyethylene glycol 3350 (Miralax) As directed by gastroenterology department at [facility] 238 grams PO ONCE 238 grams 0RF Z12.11 - Encounter for screening for malignant neoplasm of colon Discontinued omeprazole Discontinued Reason: Doctor's Order 40 mg PO DAILY 14 days 14 caps 0RF Coding Level of Care Code Est Pt Level 4 (60885) Complex EM visit Add On G2211 Diagnoses Gastroesophageal reflux disease without esophagitis K21.9 Esophagitis presence: without esophagitis Colon cancer screening Z12.11 Time Spent (min) 40 Comment 25 minutes spent with patient and additional 15 minutes spent reviewing her records
[2024-10-08 10:35] VITALS: BP 147/73; PULSE 73; BMI 35.9
== END 2024-10-08 11:42 | disposition home or self-care (01) ==
LOC: HO.HGI 10:22
PROVIDERS: PCP Internal Medicine; Visit Provider Nurse Practitioner Family
DX: K21.9 Gastro-esophageal reflux disease without esophagitis (principal); R10.13 Epigastric pain
CPT/HCPCS: 99214

== ENCOUNTER 2024-11-04 09:33 | Outpatient (REF) | payer BC, SELFPAY | END 2024-11-04 09:34 | disposition home or self-care (01) | LOC: HO.MAMMO 09:33 | PROVIDERS: PCP Internal Medicine; Visit Provider Internal Medicine | DX: Z12.31 Encounter for screening mammogram for malignant neoplasm of breast (principal) | CPT/HCPCS: 77063; 77067 ==

== ENCOUNTER → 2024-11-04 09:45 | Outpatient (BNV) | payer BC, SELFPAY | PROVIDERS: PCP Internal Medicine; Visit Provider Internal Medicine | DX: Z12.31 Encounter for screening mammogram for malignant neoplasm of breast (principal) | CPT/HCPCS: 77063; 77067 ==

== ENCOUNTER 2025-02-05 08:55 | Day surgery (SDC) | payer BC, SELFPAY ==
--- NOTE | 2025-02-03 12:24 | P.CONAN_ITS ---
Documented by User: Marcy Wheeler NP 02/03/25 12:24 HPI - Anesthesia Eval Consult details Narrative: 45 yr old female for ?Upper Endoscopy and Colonoscopy PMFSH Active Problems Active Problems: All Active Problems Colon cancer screening (Acute) Cervical cancer screening (Acute) Breast cancer screening by mammogram (Acute) Frequency of micturition (Acute) Peripheral neuropathy (Acute) Situational anxiety (Acute) Hx of ovarian cyst (Acute) Presence of 52 mg levonorgestrel-releasing intrauterine device (IUD) (Acute) Peripheral vascular disease (Acute) Chest pain (Acute) Encounter to discuss test results (Acute) Complex ovarian cyst (Acute) Heavy menstrual bleeding (Acute) Dysmenorrhea (Acute) Pelvic pain in female (Acute) Encounter for annual routine gynecological examination (Acute) UTI (urinary tract infection) (Acute) Flank pain (Acute) Annual physical exam (Acute) Obesity (BMI 30-39.9) (Acute) Hypercholesterolemia (Acute) Hypertension (Acute) GERD (gastroesophageal reflux disease) (Acute) Past Medical History Medical History History of miscarriage Allergic rhinitis Anosmia Obesity (BMI 30-39.9) Urge incontinence Hypercholesterolemia Vitamin D deficiency Hypertension GERD (gastroesophageal reflux disease) Complex ovarian cyst Family History Family History Mother Breast cancer, Onset Age: 60 Heart failure Pulmonary hypertension Scleroderma Father FH: prostate cancer Family history of problems with anesthesia: No Surgical History Surgical History History of esophagogastroduodenoscopy (EGD) H/O surgical amputation of finger History of Problems with Anesthesia: No Social History Social History Housing: House Are you a primary school child care attendant to a significant other at home: No Do you presently have visiting nurse or other home services: No Alcohol intake: former Patient Tobacco Use Status: Never used Tobacco e-Cigarette/Vaping Use: Never Used Second Hand Smoke Exposure: No Have you been hit, kicked, punched, or otherwise hurt by someone within the past year? 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 Cognitive needs: No Hearing needs: No Vision needs: No Meds Allergies Allergy/AdvReac Type Severity Reaction Status Date / Time lisinopril AdvReac Intermediate Headache Verified 10/06/24 16:19 Assessment and Plan Final Anesthetic Review Family History of Problems with Anesthesia: No History of Problems with Anesthesia: No Documented by User: Damon Frances MD 02/05/25 10:11 [facility] Past Medical History Medical History History of miscarriage Allergic rhinitis Anosmia Obesity (BMI 30-39.9) Urge incontinence Hypercholesterolemia Vitamin D deficiency Hypertension GERD (gastroesophageal reflux disease) Complex ovarian cyst Functional capacity: independent ambulation Family History Family History Mother Breast cancer, Onset Age: 60 Heart failure Pulmonary hypertension Scleroderma Father FH: prostate cancer Surgical History Surgical History History of esophagogastroduodenoscopy (EGD) H/O surgical amputation of finger Social History Social History Housing: House Are you a primary school child care attendant to a significant other at home: No Do you presently have visiting nurse or other home services: No Alcohol intake: former Patient Tobacco Use Status: Never used Tobacco e-Cigarette/Vaping Use: Never Used Second Hand Smoke Exposure: No Have you been hit, kicked, punched, or otherwise hurt by someone within the past year? 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 Cognitive needs: No Hearing needs: No Vision needs: No Meds Allergies Allergy/AdvReac Type Severity Reaction Status Date / Time lisinopril AdvReac Intermediate Headache Verified 10/06/24 16:19 Exam Exam Date and Time: 02/05/25 Airway Mallampati Class: II TM Dist: >3cm Neck ROM: Full Denture: Upper (none) Loose/Missing/Broken Teeth: No Heart: normal Lungs: clear Other: normal Assessment and Plan Assessment Anesthesia Assessment: Anesthesia Plan Discussed Final Anesthetic Review NPO: Yes ASA Class: II Final Preanesthetic Review: No Changes in Pt Med Stat, Meds/Allgs Chart Reviewed, Consent Obtained/Reviewed and Anes Risks/Benef Reviewed Patient Risk: Low Procedure Risk: Low Anesthetic Plan Anesthetic Plan: MAC: Disposition: Standard PACU
[2025-02-03 14:03] VITALS: BMI 35.8
[2025-02-05 09:14] VITALS: BMI 35.9
[2025-02-05] MEDS: Lactated Ringers 1,000 ML 100 ML IVCONT (09:28)
[2025-02-05 09:29] VITALS: BP 141/89; PULSE 83; RESP 18; TEMP 36.7; O2SAT 98
--- NOTE | 2025-02-05 09:30 | MHC.SHP ---
Pre-Procedural Eval Section A - 24 Hr Update-Section A only Date of Service: 02/05/25 Section B - Complete if H&P > 30 days Chief Complaint: screening,gerd Details of Present Illness: History of miscarriage Allergic rhinitis Anosmia Obesity (BMI 30-39.9) Urge incontinence Hypercholesterolemia Vitamin D deficiency Hypertension GERD (gastroesophageal reflux disease) Complex ovarian cyst Surgical History H/O surgical amputation of finger Present Medications: see Short Stay Collaborative assessment Allergies: Allergies Allergy/AdvReac Type Severity Reaction Status Date / Time lisinopril AdvReac Intermediate Headache Verified 10/06/24 16:19 Review of Systems Review of Systems Comment: Ten point ROS negative Exam Exam Comment: Gen appear: No acute distress HEENT: no icterus Chest: No overt resp distress Abd: soft, nontender, nondistended Psych: Stable affect, answering questions appropriately Neuro: A/Ox3 noted to move all extremities spontaneously Ext: no peripheral edema Plan Diagnosis/Plan: Unchanged I have reviewed the history and physical and performed a pertinent physical examination on my patient. No changes have occurred unless specified. Time Spent With Patient Time: Total time managing care of this patient today ____ minutes.
[2025-02-05 09:37] LABS: UPreg QC Valid YES
--- NOTE | 2025-02-05 11:02 | P.OPN-COLO_ITS ---
Colonoscopy Operative Note Operative Note Date of Service: 02/05/25 Narrative: Procedure: Upper endoscopy and colonoscopy Indication: GERD, screening Endoscopist: Sari Hackett MD Anesthesia Provider: Dr Frances Anesthesia type: MAC Instrument: [id number] and [id number] EGD Procedure:?? The procedure, indications, preparation and potential complications were reviewed with the patient, who indicated understanding and gave written informed consent to proceed. The endoscope was introduced through the mouth, and advanced to the 2nd part of the duodenum. The mucosa was carefully examined on slow withdrawal of the endoscope. The patient tolerated the procedure well. There were no immediate complications.? EGD Findings:? * Esophagus:? Normal esophageal mucosa was noted. The Z-line was at 35 cm. Cold forceps biopsies were taken from middle and lower esophagus to rule out eosinophilic esophagitis. * Stomach:? Normal gastric mucosa. Retroflexion was performed in the cardia. * Duodenum:? Normal duodenal mucosa. Colonoscopy Procedure:? The patient was then turned for the colonoscopy. An abdominal binder was affixed to the lower abdomen. A digital rectal exam was performed which was normal.? A distal attachment cap was affixed to the tip of the scope and the colonoscope was then inserted through the anus and advanced through the colon and advanced to the cecum at 70 cm and terminal ileum.? Appendiceal orifice and ileocecal valve were identified. Mucosa was carefully examined under high definition white light as the instrument was slowly withdrawn in a retrograde panoramic fashion. Retroflexion was performed in rectum. The procedure was not difficult. The quality of the prep was BBPS: 3+3+2 = adequate Withdrawal time 11 minutes Limitations: No limitations Findings: Mucosa: Normal colon and terminal ileum mucosa. Protruding lesions: * 1 sessile polyp of size 5 mm in descending colon. Cold snare polypectomy was performed. The polyp was completely removed and retrieved. * Medium internal hemorrhoids without stigmata of recent bleeding. Excavated lesions: * Mild to moderate diverticulosis of left colon. Impression: 1. Normal esophagus (biopsy) 2. Normal stomach 3. Normal duodenum 4. Normal colon and terminal ileum mucosa 5. 1 polyp removed 6. Diverticulosis 7. Internal and external hemorrhoids Recommendations:?? * Follow-up path results * No esophagitis was noted today. If patient remains symptomatic with GERD despite PPI therapy, consider barium swallow vs repeat EGD with [facility]. * Repeat colonoscopy for CRC screening in 7-10 years if polyp is an adenoma or 5 years if polyp is sessile serrated.
[2025-02-05 11:05] VITALS: BP 100/62; PULSE 95; RESP 24; TEMP 36.6; O2SAT 96
[2025-02-05 11:20] VITALS: BP 124/93; PULSE 90; RESP 16; O2SAT 97
== END 2025-02-05 11:23 | disposition home or self-care (01) ==
PROVIDERS: Nurse Practitioner; PCP Internal Medicine; Visit Provider Internal Medicine
PROC: (CPT 45385; principal; 2025-02-05 11:00)
DX: Z12.11 Encounter for screening for malignant neoplasm of colon (principal); K21.9 Gastro-esophageal reflux disease without esophagitis; K64.8 Other hemorrhoids; K64.4 Residual hemorrhoidal skin tags; D12.4 Benign neoplasm of descending colon; K57.30 Diverticulosis of large intestine without perforation or abscess without bleeding
CPT/HCPCS: 45385; 43239; 81025; 88305; 88313; J2003; J2704; J3010

== ENCOUNTER → 2025-02-05 08:55 | Outpatient (BNV) | payer BC, SELFPAY | PROVIDERS: PCP Internal Medicine; Visit Provider Internal Medicine | DX: Z12.11 Encounter for screening for malignant neoplasm of colon (principal); K63.5 Polyp of colon; K57.90 Diverticulosis of intestine, part unspecified, without perforation or abscess without bleeding; K64.8 Other hemorrhoids; K21.9 Gastro-esophageal reflux disease without esophagitis | CPT/HCPCS: 43239; 45385 ==